=== PATIENT | male | born 1940 | race Caucasian/White ===

== ENCOUNTER 2018-01-23 09:25 | Inpatient (IN) ==
[2018-01-23] MEDS ORDERED: Ondansetron 4 MG/2 ML VIAL IVP ONE ×2 (09:53→11:05)
[2018-01-23] MEDS ORDERED: Isovue-370 500 ML INFUS..BTL IV ONE (09:56)
[2018-01-23] MEDS ORDERED: *HR* FentaNYL (PF) 100 MCG/2 ML VIAL IVP ONE ×2 (09:56→11:09)
[2018-01-23] MEDS ORDERED: 0.9 % Sodium Chloride 1,000 ML IVC ONE (09:58)
[2018-01-23 10:07] LABS: Basophils % 0.3 %; Eosinophils # 0.1 K/mcL (0.0-0.6); Eosinophils % 0.4 %; Hematocrit 49.2 % (37.5-50.1); Hemoglobin 16.4 g/dL (12.9-16.9); Immature Granulocytes % 0.3 % (0-4); Lymphocytes # 1.2 K/mcL (0.6-4.6); Lymphocytes % 10.7 %; Mean Corpuscular HGB Conc 33.3 g/dL (31.6-35.5); Mean Corpuscular Hemoglobin 29.4 pg (28.0-33.3); Mean Corpuscular Volume 88.3 fL (83.0-100.0); Mean Platelet Volume 11.3 fL (9.4-12.4); Monocytes # 0.6 K/mcL (0.0-1.3); Neutrophils # 9.7 K/mcL (1.6-8.9); Platelet Count 197 K/mcL (140-400); Red Blood Count 5.57 M/mcL (4.19-5.50); Red Cell Distribution Width 13.2 % (11.5-14.5); Segmented Neutrophils % 83.3 %
--- NOTE | 2018-01-23 10:08 | Emergency Department Note ---
Disposition Clinical Impression: Hematuria Qualifiers: Hematuria type: unspecified type Qualified Code(s): R31.9 - Hematuria, unspecified Disposition: Admitted As Inpatient Condition: Good Referrals: Monique Oseguera MD [Primary Care Provider] - Time of Disposition: 12:00 General Adult HPI - General Chief complaint: ED Nausea/Vomiting/Diarrhea Stated complaint: N/V Time Seen by Provider: 01/23/18 09:28 Source: patient, EMS Mode of arrival: EMS Limitations: no limitations Nursing Notes Reviewed: Yes Vital Signs Reviewed: Yes - History of Present Illness HPI Narrative: Patient is a 77-year-old male with past medical history of multiple abdominal surgeries including hernia repairs presenting today with 1 day of left lower abdominal pain that started abruptly this morning around 7 AM. He states that h e also woke up at 3 AM and felt a sudden sensation of sharp pain that started when he turned over in bed, states he was able to move in a different way pain go away back to sleep. Then when he woke at 7 AM this morning the pain returned and did not go away, describes it as a sharp pain without radiation and a 10 out of 10 in severity. Patient states that he has a history of "the sugars", takes a daily aspirin, and had a vasectomy several years ago which resulted in his left testicle being larger than his right, which she has previously had worked up and been told that it was nothing that needs to be fixed. Patient denies any allergies. Patient states that he had back surgery several years ago which resulted in complication leading to pain for which she was placed on chronic pain medication, but states that he was taken off his pain medication 4 months ago. Pain Scale: 10 - Related Data Home Medications Medication Instructions Recorded Confirmed Aspirin [Lo-Dose Aspirin EC] 81 mg PO DAILY 10/05/17 10/05/17 Glimepiride [Amaryl] 4 mg PO BID 10/05/17 10/05/17 Cyanocobalamin (Vitamin B-12) 1,000 mcg PO DAILY 01/23/18 01/23/18 [Vitamin B-12] Metformin HCl 500 mg PO BID 01/23/18 01/23/18 Pregabalin [Lyrica] 75 mg PO BID 01/23/18 01/23/18 Allergies Allergy/AdvReac Type Severity Reaction Status Date / Time No Known Allergies Allergy Verified 01/23/18 09:36 Constitutional: Reports: fever, chills Cardiovascular: Denies: chest pain Respiratory: Denies: cough, dyspnea, wheezes Gastrointestinal: Reports: abdominal pain, nausea, vomiting, diarrhea. Denies: constipation, hematemesis, hematochezia Genitourinary: Denies: urgency, dysuria Musculoskeletal: Reports: back pain Neurological: Denies: headache Past Medical History - Past Medical History Medical history: Reports: arthritis, coronary artery disease, diabetes, GERD Surgical history: Reports: angioplasty/stent, cholecystectomy, herniorrhaphy, other Psychiatric history: Reports: depression - Social History Smoking Status: Former smoker Smokeless Tobacco Status: No Alcohol use: Reports: none Drug use: Reports: none Physical Exam - General Limitations: no limitations General appearance: alert, in no apparent distress - Head Head exam: atraumatic, normocephalic - Eye Eye exam: Present: normal appearance, PERRL, EOMI - ENT ENT exam: normal exam, normal oropharynx, mucous membranes moist - Neck Neck exam: Present: normal inspection, full ROM - Chest Chest inspection: Present: normal inspection, symmetric chest wall rise - Respiratory Respiratory exam: Present: normal lung sounds bilaterally. Absent: respiratory distress, wheezes - Cardiovascular Cardiovascular exam: Present: regular rate, normal rhythm - Abdominal Exam Abdominal exam: Present: soft, tenderness (left, above the inguinal crease), hernia (central), scar (multiple abdominal scars present), other (palpable swelling above left inguinal crease, without discoloration, erythema, or warmth) - Neurological Exam Neurological exam: Present: alert, oriented X3 - Psychiatric Psychiatric exam: Present: agitated - Skin Skin exam: Present: warm, dry, intact Course Course Narrative: Will get labs to include CBC, CMP, Lipase, UA. Will get imaging - CT Abd/Pelvis with IV contrast. Will administer anti-emetics, pain medication, fluids. Concern for hernia given patient's hx of multiple hernias. - Reevaluation(s) Reevaluation #1: CT concerning for hemorrhage in collecting system. Consulted Dr. Oscar, Urology, who states they do not want the pt on their service but would be happy to consult. Pt agrees with plan to be admitted. Will admit to hospitalist. Time: 12:38 Vital Signs Temperature 98 F 01/23/18 09:29 Pulse Rate 50 01/23/18 09:29 Respiratory Rate 16 01/23/18 09:29 Blood Pressure 152/81 01/23/18 09:29 O2 Sat by Pulse Oximetry 100 01/23/18 09:29 Temperature 98 F 01/23/18 09:29 Pulse Rate 77 01/23/18 14:00 Respiratory Rate 16 01/23/18 14:03 Blood Pressure 140/77 01/23/18 14:03 O2 Sat by Pulse Oximetry 100 01/23/18 14:00 Oxygen Delivery Oxygen Delivery Room Air Medical Decision Making - MDM Narrative Medical decision making narrative: Pt's CT was concerning for renal hemorrhage with a clot in his bladder. Spoke with urology, Dr Oscar, that agreed to see the patient today. Spoke with hospitalist, Dr. Joshi, that agreed to admit the patient. Spoke with the patient and he agreed with and understood the plan. Pt was given an opportunity to ask questions and all of his concerns were addressed. Pt remained stable while in the department. Pt's pain and nausea were addressed. - Medical Records Medical records reviewed: Yes I reviewed the patient's medical records. - Lab Data Lab results reviewed: Yes I reviewed the patient's lab results. Result diagrams: 01/23/18 09:52 01/23/18 09:52 Lab Results 01/23/18 01/23/18 01/23/18 Range/Units 09:52 09:52 10:30 WBC 11.6 H (4.3-11.1) K/mcL RBC 5.57 H (4.19-5.50) M/mcL Hgb 16.4 (12.9-16.9) g/dL Hct 49.2 (37.5-50.1) % MCV 88.3 (83.0-100.0) fL MCH 29.4 (28.0-33.3) pg MCHC 33.3 (31.6-35.5) g/dL RDW 13.2 (11.5-14.5) % Plt Count 197 (140-400) K/mcL MPV 11.3 (9.4-12.4) fL Immature Gran % 0.3 (0-4) % Seg Neutrophils % 83.3 % Lymphocytes % 10.7 % Monocytes % 5.0 % Eosinophils % 0.4 % Basophils % 0.3 % Neutrophils # 9.7 H (1.6-8.9) K/mcL Lymphocytes # 1.2 (0.6-4.6) K/mcL Monocytes # 0.6 (0.0-1.3) K/mcL Eosinophils # 0.1 (0.0-0.6) K/mcL Basophils # 0.0 (0.0-0.2) K/mcL Sodium 137 (136-145) mEq/L Potassium 4.9 (3.5-5.1) mEq/L Chloride 103 (98-107) mEq/L Carbon Dioxide 23 (23-29) mEq/L BUN 20 (8-23) mg/dL Creatinine 0.98 (0.70-1.30) mg/dL Est GFR ( Amer) > 60 (> 60) Est GFR (Non-Af Amer) > 60 (> 60) BUN/Creatinine Ratio 20 (6-26) Glucose 269 H (70-105) mg/dL Calculated Osmolality 296 (280-300) Calcium 9.8 (8.6-10.3) mg/dL Total Bilirubin 1.9 H (0.3-1.0) mg/dL AST 20 (13-39) Units/L ALT 12 (7-52) Units/L Alkaline Phosphatase 57 (34-104) Units/L Serum Total Protein 7.1 (6.4-8.9) g/dL Albumin 4.2 (3.5-5.7) g/dL Globulin 2.9 (2.4-3.5) g/dL Albumin/Globulin Ratio 1.4 (1.1-2.2) Lipase 11 (11-82) Units/L Urine Color Red A (Yellow) Urine Clarity Turbid A (Clear) Urine pH 7.0 (5.0-8.0) pH Units Ur Specific [place] 1.019 (1.010-1.025) Urine Protein 30 H (Neg-Trace) mg/dL Urine Glucose (UA) 500 H (Normal) mg/dL Urine Ketones 80 H (Negative) mg/dL Urine Blood Large H (Negative) Urine Nitrite Negative (Negative) Urine Bilirubin Negative (Negative) Urine Urobilinogen Normal (Normal) mg/dL Ur Leukocyte Esterase Small H (Negative) Urine Microscopic RBC TNTC H (0-3) per hpf Urine Microscopic WBC 5-15 H (0-3) per hpf Ur Squamous Epith Cells Few (None-Few) per lpf Urine Bacteria None Seen (None-Few) per hpf Hyaline Casts None Seen (None-Few) per lpf Ur Culture Indicated? YES A (NO) - Radiology Data Radiology results reviewed: Yes I reviewed the patient's radiology results. Abdomen/Pelvis CT 01/23/18 09:56 IMPRESSION: Mild to moderate hydronephrosis, increased perinephric stranding and increased density material within the renal collecting system which may represent hemorrhage. Underlying soft tissue lesion cannot be excluded. Findings more prominent than on prior study. Please correlate with any history of urologic evaluation. There is a 2 mm calcification noted within the distal 3rd of the left ureter which may represent a ureteral stone. Increased density within the bladder also noted which may represent hemorrhagic clot although soft tissue lesion cannot be excluded. Other incidental findings as above. D/ / 01/23/2018 12:22:48 Jamari Marcano MD / mikael Interpreting Provider: Jamari Marcano MD
[2018-01-23 10:23] LABS: Alanine Aminotransferase 12 Units/L (7-52); Albumin 4.2 g/dL (3.5-5.7); Albumin/Globulin Ratio 1.4 (1.1-2.2); Alkaline Phosphatase 57 Units/L (34-104); Aspartate Amino Transferase 20 Units/L (13-39); BUN/Creatinine Ratio 20 (6-26); Bilirubin,Total 1.9 mg/dL (0.3-1.0); Blood Urea Nitrogen 20 mg/dL (8-23); Calcium 9.8 mg/dL (8.6-10.3); Carbon Dioxide 23 mEq/L (23-29); Chloride 103 mEq/L (98-107); Globulin 2.9 g/dL (2.4-3.5); Glucose 269 mg/dL (70-105); Lipase 11 Units/L (11-82); Osmolality,Calculated 296 (280-300); Potassium 4.9 mEq/L (3.5-5.1); Sodium 137 mEq/L (136-145); Total Protein 7.1 g/dL (6.4-8.9); eGFR For Non-African Americans > 60 (> 60)
--- NOTE | 2018-01-23 10:32 | Emergency Department Note ---
Disposition Clinical Impression: Hematuria Qualifiers: Hematuria type: unspecified type Qualified Code(s): R31.9 - Hematuria, unspecified Disposition: Admitted As Inpatient Condition: Good Time of Disposition: 15:43 General Adult HPI - General Chief complaint: ED Nausea/Vomiting/Diarrhea Stated complaint: N/V Time Seen by Provider: 01/23/18 09:28 Source: patient, EMS Mode of arrival: EMS Limitations: no limitations - History of Present Illness HPI Narrative: Attestation note: Patient was seen with the emergency medicine resident/nurse practitioner/physician switchboard operator assistant/transitional resident/medical student: Dr. ANTIONETTE ATKINS I have personally performed a face to face evaluation on this patient. I have reviewed and agree with history and physical examination patient management and disposition. Briefly the salient points of the case are as follows: 77 year old male history of multiple hernia surgeries by Dr. Salter at [facility] with mesh. Patient complains of diffuse abdominal pain tenderness in the epigastric hypogastric left inguinal and left upper quadrant. Patient is sent multiple episodes of bilious vomiting decreased appetite denies fevers chest pain or shortness of breath. Says is 10 out of 10 in moderate to severe distress. Patient got 50 g of IV fentanyl be followed by 100 g of IV fentanyl IV fluid anti-medics screening labs abdominal pelvic CT. Disposition pending. Pain Scale: 10 - Related Data Home Medications Medication Instructions Recorded Confirmed RX: Aspirin [Lo-Dose Aspirin EC] 81 mg PO DAILY 10/05/17 01/23/18 RX: Glimepiride [Amaryl] 4 mg PO BID 10/05/17 01/23/18 Cyanocobalamin (Vitamin B-12) 1,000 mcg PO DAILY 01/23/18 01/23/18 [Vitamin B-12] Metformin HCl 500 mg PO BID 01/23/18 01/23/18 Pregabalin [Lyrica] 75 mg PO BID 01/23/18 01/23/18 Allergies Allergy/AdvReac Type Severity Reaction Status Date / Time No Known Allergies Allergy Verified 01/23/18 09:36 Constitutional: Reports: fever, chills Cardiovascular: Denies: chest pain Respiratory: Denies: cough, dyspnea, wheezes Gastrointestinal: Reports: abdominal pain, nausea, vomiting, diarrhea. Denies: constipation, hematemesis, hematochezia Genitourinary: Denies: urgency, dysuria Musculoskeletal: Reports: back pain Neurological: Denies: headache Past Medical History - Past Medical History Medical history: Reports: arthritis, coronary artery disease, diabetes, GERD Surgical history: Reports: angioplasty/stent, cholecystectomy, herniorrhaphy, other Psychiatric history: Reports: depression - Social History Smoking Status: Former smoker Smokeless Tobacco Status: No Alcohol use: Reports: none Drug use: Reports: none Physical Exam - General Limitations: no limitations General appearance: alert, in no apparent distress Course Vital Signs Temperature 98 F 01/23/18 09:29 Pulse Rate 50 01/23/18 09:29 Respiratory Rate 16 01/23/18 09:29 Blood Pressure 152/81 01/23/18 09:29 O2 Sat by Pulse Oximetry 100 01/23/18 09:29 Temperature 98.3 F 01/24/18 14:20 Pulse Rate 60 01/24/18 14:20 Respiratory Rate 16 01/24/18 14:20 Blood Pressure 128/75 01/24/18 14:20 O2 Sat by Pulse Oximetry 96 01/24/18 14:20 Oxygen Delivery Oxygen Delivery Room Air Medical Decision Making - Lab Data Result diagrams: 01/24/18 04:22 01/24/18 04:22 Lab Results 01/23/18 01/23/18 01/23/18 Range/Units 09:52 09:52 10:30 WBC 11.6 H (4.3-11.1) K/mcL RBC 5.57 H (4.19-5.50) M/mcL Hgb 16.4 (12.9-16.9) g/dL Hct 49.2 (37.5-50.1) % MCV 88.3 (83.0-100.0) fL MCH 29.4 (28.0-33.3) pg MCHC 33.3 (31.6-35.5) g/dL RDW 13.2 (11.5-14.5) % Plt Count 197 (140-400) K/mcL MPV 11.3 (9.4-12.4) fL Immature Gran % 0.3 (0-4) % Seg Neutrophils % 83.3 % Lymphocytes % 10.7 % Monocytes % 5.0 % Eosinophils % 0.4 % Basophils % 0.3 % Neutrophils # 9.7 H (1.6-8.9) K/mcL Lymphocytes # 1.2 (0.6-4.6) K/mcL Monocytes # 0.6 (0.0-1.3) K/mcL Eosinophils # 0.1 (0.0-0.6) K/mcL Basophils # 0.0 (0.0-0.2) K/mcL Sodium 137 (136-145) mEq/L Potassium 4.9 (3.5-5.1) mEq/L Chloride 103 (98-107) mEq/L Carbon Dioxide 23 (23-29) mEq/L BUN 20 (8-23) mg/dL Creatinine 0.98 (0.70-1.30) mg/dL Est GFR ( Amer) > 60 (> 60) Est GFR (Non-Af Amer) > 60 (> 60) BUN/Creatinine Ratio 20 (6-26) Glucose 269 H (70-105) mg/dL Calculated Osmolality 296 (280-300) Calcium 9.8 (8.6-10.3) mg/dL Total Bilirubin 1.9 H (0.3-1.0) mg/dL AST 20 (13-39) Units/L ALT 12 (7-52) Units/L Alkaline Phosphatase 57 (34-104) Units/L Serum Total Protein 7.1 (6.4-8.9) g/dL Albumin 4.2 (3.5-5.7) g/dL Globulin 2.9 (2.4-3.5) g/dL Albumin/Globulin Ratio 1.4 (1.1-2.2) Lipase 11 (11-82) Units/L Urine Color Red A (Yellow) Urine Clarity Turbid A (Clear) Urine pH 7.0 (5.0-8.0) pH Units Ur Specific [place] 1.019 (1.010-1.025) Urine Protein 30 H (Neg-Trace) mg/dL Urine Glucose (UA) 500 H (Normal) mg/dL Urine Ketones 80 H (Negative) mg/dL Urine Blood Large H (Negative) Urine Nitrite Negative (Negative) Urine Bilirubin Negative (Negative) Urine Urobilinogen Normal (Normal) mg/dL Ur Leukocyte Esterase Small H (Negative) Urine Microscopic RBC TNTC H (0-3) per hpf Urine Microscopic WBC 5-15 H (0-3) per hpf Ur Squamous Epith Cells Few (None-Few) per lpf Urine Bacteria None Seen (None-Few) per hpf Hyaline Casts None Seen (None-Few) per lpf Ur Culture Indicated? YES A (NO)
[2018-01-23 10:43] LABS: Bilirubin,Urine Negative (Negative); Blood,Urine Large (Negative); Clarity,Urine Turbid (Clear); Color,Urine Red (Yellow); Glucose,Urine (UA) 500 mg/dL (Normal); Ketones,Urine 80 mg/dL (Negative); Leukocyte Esterase,Urine Small (Negative); Nitrite,Urine Negative (Negative); Protein,Urine 30 mg/dL (Neg-Trace); Specific Gravity,Urine 1.019 (1.010-1.025); Urobilinogen,Urine Normal (Normal)
[2018-01-23 10:46] LABS: Bacteria,Urine None Seen per hpf (None-Few); Hyaline Casts,Urine None Seen per lpf (None-Few); RBC,Urine TNTC per hpf (0-3); Squamous Epithelial Cell,Urine Few per lpf (None-Few)
[2018-01-23] MEDS ORDERED: *HR* HYDROmorphone (PF) 1 MG/ML SYRINGE IVP ONE (12:43)
[2018-01-23] MEDS ORDERED: cefTRIAXone 1,000 MG in Water for inj. (sterile) 20 ML 10 ML IVP ONE (13:09)
--- NOTE | 2018-01-23 13:41 | Urology - Consult Note ---
Date of Encounter: 01/23/18 Time of Encounter: 13:39 - Assessment and Plan (1) Gross hematuria Current Visit: Yes Status: Acute Assessment and plan: Unsure of etiology at this time. We will plan on taking the patient to the oper ative room today for left ureteroscopy. (2) Left flank pain Current Visit: Yes Status: Acute Assessment and plan: We will plan on placing left ureteral stent placement. (3) Hydronephrosis, left Current Visit: Yes Status: Acute Assessment and plan: Likely secondary to blood products causing clot colic. Urology CN:HPI Consult date: 01/23/18 Reason for consult Urology: Gross Hematuria Requesting physician: Keli Charles History of present illness: Anand is a 77-year-old male who presented to the emergency department today secondary to severe left inguinal discomfort. Patient states the pain radiated up his abdomen. Pain is currently a 10 out of 10 in nature and poorly improved with IV pain medicine. Patient had a CT scan performed which revealed blood products and his left renal collecting system as well as in his left ureter. Patient was some proximal hydronephrosis and left side as well. Patient did have a negative retrograde pyelogram and semirigid ureteroscopy this past summer by Dr. Samuel. Patient also with persistent nausea and vomiting. No fevers. Patient's blood glucose is also slightly elevated. Past Med Surg Social Fam HX - Past Medical History Medical history: arthritis, coronary artery disease, diabetes, GERD Additional medical history: cardiac stents x2,ballon, 5 hernia repairs, esphageal sx, erectile dysfunction, epicondylitis Psychiatric history: depression - Past Surgical History Surgical History: angioplasty/stent, cholecystectomy, herniorrhaphy, other Additional surgical history: back,estela,egd,colonoscopydeviated septum,plif, hernia repairs - Social History Smoking Status: Former smoker Smokeless Tobacco Status: No Alcohol use: none Drug use: none - Family History Father Adopted: Yes Brother Family Member Ethnicity: Non- Living Status: Still Living Hx Family Cardiac Disorders: Yes (CABG) Hx Family Respiratory Disorders: No Hx Family Cancer: No Hx Family GI Disorders: No Hx Family Endocrine Disorder: No Hx Family Neuromuscular Disorders: No Hx Family Neurologic Disorders: No Hx Family HEENT Disorders: No Hx Family Autoimmune Disorders: No Medications and Allergies Aspirin [Lo-Dose Aspirin EC] 81 mg PO DAILY 10/05/17 [History] Cyanocobalamin/Folic Acid [B-12 1,000 Mcg Sub Tablet] 1 tab SL DAILY 10/05/17 [History] Duloxetine HCl [Cymbalta] 60 mg PO DAILY 10/05/17 [History] Famotidine [Pepcid] 20 mg PO DAILY 10/05/17 [History] Glimepiride [Amaryl] 4 mg PO BID 10/05/17 [History] Metformin HCl 500 mg PO BID 10/05/17 [History] OxyCODONE/APAP 10/325 [Percocet 10/325 MG] 1 tab PO Q6H PRN 10/05/17 [History] Allergy/AdvReac Type Severity Reaction Status Date / Time No Known Allergies Allergy Verified 01/23/18 09:36 Review of Systems - Constitutional no chills, no fever(s) - EENT Nose, mouth and throat: no dizziness, no sore throat - Cardiovascular no chest pain, no edema - Respiratory no cough, no dyspnea - Gastrointestinal abdominal pain, nausea, vomiting - Genitourinary as per HPI, hematuria - Musculoskeletal back pain, no muscle weakness - Integumentary no erythema, no swelling - Neurological weakness (Weakness on right side secondary to prior stroke), no sensory deficit - Psychiatric no anxiety, no confusion - Hematologic/Lymphatic no lymphadenopathy - Allergic/Immunologic no throat swelling, no wheezing Exam Initial Vital Signs Temp Pulse Resp BP Pulse Ox 98 F 50 16 152/81 100 01/23/18 09:29 01/23/18 09:29 01/23/18 09:29 01/23/18 09:29 01/23/18 09:29 General/Neuological: alert and oriented x 3 Eyes: normal pupils, non-icteric Neck: no lymphadenopathy noted, supple to touch Cardiovascular: RRR, no murmurs Respiratory: normal respiratory effort, clear bilaterally ABD: soft, nontender, no masses palpated, good bowel sounds, no obvious left inguinal hernia but difficult exam secondary to patient discomfort. Back: no pain on percussion bilaterally : normal phallus, normal scrotum, testicles and epididymides normal, urethral meatus normal. Skin: no rashes noted Musculoskeletal: normal gait, FROM Urology Results - Labs 01/23/18 09:52 01/23/18 09:52 Abnormal lab results WBC 11.6 K/mcL (4.3-11.1) H 01/23/18 09:52 RBC 5.57 M/mcL (4.19-5.50) H 01/23/18 09:52 Neutrophils # 9.7 K/mcL (1.6-8.9) H 01/23/18 09:52 Glucose 269 mg/dL (70-105) H 01/23/18 09:52 Total Bilirubin 1.9 mg/dL (0.3-1.0) H 01/23/18 09:52 Urine Color Red (Yellow) A 01/23/18 10:30 Urine Clarity Turbid (Clear) A 01/23/18 10:30 Urine Protein 30 mg/dL (Neg-Trace) H 01/23/18 10:30 Urine Glucose (UA) 500 mg/dL (Normal) H 01/23/18 10:30 Urine Ketones 80 mg/dL (Negative) H 01/23/18 10:30 Urine Blood Large (Negative) H 01/23/18 10:30 Ur Leukocyte Esterase Small (Negative) H 01/23/18 10:30 Urine Microscopic RBC TNTC per hpf (0-3) H 01/23/18 10:30 Urine Microscopic WBC 5-15 per hpf (0-3) H 01/23/18 10:30 Ur Culture Indicated? YES (NO) A 01/23/18 10:30 Diabetes panel 01/23/18 Range/Units 09:52 Sodium 137 (136-145) mEq/L Potassium 4.9 (3.5-5.1) mEq/L Chloride 103 (98-107) mEq/L Carbon Dioxide 23 (23-29) mEq/L BUN 20 (8-23) mg/dL Creatinine 0.98 (0.70-1.30) mg/dL Glucose 269 H (70-105) mg/dL Calcium 9.8 (8.6-10.3) mg/dL AST 20 (13-39) Units/L ALT 12 (7-52) Units/L Alkaline Phosphatase 57 (34-104) Units/L Albumin 4.2 (3.5-5.7) g/dL Calcium panel 01/23/18 Range/Units 09:52 Calcium 9.8 (8.6-10.3) mg/dL Albumin 4.2 (3.5-5.7) g/dL Pituitary panel 01/23/18 Range/Units 09:52 Sodium 137 (136-145) mEq/L Potassium 4.9 (3.5-5.1) mEq/L Chloride 103 (98-107) mEq/L Carbon Dioxide 23 (23-29) mEq/L BUN 20 (8-23) mg/dL Creatinine 0.98 (0.70-1.30) mg/dL Glucose 269 H (70-105) mg/dL Calcium 9.8 (8.6-10.3) mg/dL Adrenal panel 01/23/18 Range/Units 09:52 Sodium 137 (136-145) mEq/L Potassium 4.9 (3.5-5.1) mEq/L Chloride 103 (98-107) mEq/L Carbon Dioxide 23 (23-29) mEq/L BUN 20 (8-23) mg/dL Creatinine 0.98 (0.70-1.30) mg/dL Glucose 269 H (70-105) mg/dL Calcium 9.8 (8.6-10.3) mg/dL Total Bilirubin 1.9 H (0.3-1.0) mg/dL AST 20 (13-39) Units/L ALT 12 (7-52) Units/L Alkaline Phosphatase 57 (34-104) Units/L Albumin 4.2 (3.5-5.7) g/dL All other labs normal. - Imaging CT scan - abdomen: image reviewed CT scan - pelvis: image reviewed Consult Discharge Plan - Plan Referrals: Monique Oseguera MD [Primary Care Provider] -
[2018-01-23] MEDS ORDERED: Naloxone 0.4 MG/ML INJ IVP PRN ×2 (14:16→17:14)
[2018-01-23] MEDS ORDERED: Dextrose Gel 15 GM/37.5 ML TUBE PO PRN ×4 (14:20→17:14)
[2018-01-23] MEDS ORDERED: *HR* Dextrose 50 % in Water (Syg) 50 ML SYRINGE IVP PRN ×2 (14:20→17:14)
[2018-01-23] MEDS ORDERED: D5% in Water 1,000 ML IVC PRN ×2 (14:20→17:14)
[2018-01-23] MEDS ORDERED: Ondansetron 4 MG/2 ML VIAL IVP PRN ×2 (14:21→17:14)
--- NOTE | 2018-01-23 14:27 | Internal Med History&Physical ---
Date of Encounter: 01/23/18 Time of Encounter: 14:22 Internal Medicine - H&P: HPI Chief complaint: N/V/D Abdominal pain Admitted From: Home Plans for Post Hospital Care: Home History of present illness: Mr. Mendez is a 77 year old male with a PMH of arthritis, coronary artery disease, diabetes, GERD. All information obtained from patient report and chart review. He presents to [facility] with sharp 10/10, cramping, constant left lower quadrand/left groin abdominal pain, as well as nausea, vomiting and diarrhea. He reports that the pain began this morning around 7 a.m. after rolling over in bed. It is radiating into his left mid back. He is also experiencing fevers, chills, dysuria and hematuria. In October of 2017 he underwent fluroscopy guided stent placment into the left renal collecting system. There were noted to be filling defects in the mid left ureter and the possibility of a mucosal mass/ neoplasm could not be excluded at that time. Today in the ED he was noted to have leukocytosis, UA positive for hematuria and the CT abd/pel reveals mild to moderate hydronephrosis, increased perinephric stranding and increased density material within the renal collecting system which may represent a hemorrhage. Case d/w Dr. Ar[facility] who plans to take the patient for ureterocsopy with possible let ureteral stent placement. He will be admitted to observation and will require ABX, and pain management as well as monitoring of renal function. Past Med Surg Social Fam HX - Past Medical History Medical history: arthritis, coronary artery disease, diabetes, GERD Additional medical history: cardiac stents x2,ballon, 5 hernia repairs, esphageal sx, erectile dysfunction, epicondylitis Psychiatric history: depression - Past Surgical History Surgical History: angioplasty/stent, cholecystectomy, herniorrhaphy, other Additional surgical history: back,estela,egd,colonoscopydeviated septum,plif, hernia repairs - Social History Smoking Status: Former smoker Smokeless Tobacco Status: No Alcohol use: none Drug use: none - Family History Father Adopted: Yes Brother Family Member Ethnicity: Non- Living Status: Still Living Hx Family Cardiac Disorders: Yes (CABG) Hx Family Respiratory Disorders: No Hx Family Cancer: No Hx Family GI Disorders: No Hx Family Endocrine Disorder: No Hx Family Neuromuscular Disorders: No Hx Family Neurologic Disorders: No Hx Family HEENT Disorders: No Hx Family Autoimmune Disorders: No Internal Medicine - H&P: Meds Aspirin [Lo-Dose Aspirin EC] 81 mg PO DAILY 10/05/17 [History] Glimepiride [Amaryl] 4 mg PO BID 10/05/17 [History] Cyanocobalamin (Vitamin B-12) [Vitamin B-12] 1,000 mcg PO DAILY 01/23/18 [History] Metformin HCl 500 mg PO BID 01/23/18 [History] Pregabalin [Lyrica] 75 mg PO BID 01/23/18 [History] Allergy/AdvReac Type Severity Reaction Status Date / Time No Known Allergies Allergy Verified 01/23/18 09:36 All Systems PM: A 10-system review of systems was performed and is negative for pertinent findings except as documented above in the HPI. - Constitutional Constitutional: chills, fever(s), malaise, night sweats - Cardiovascular Cardiovascular ROS IM: no chest pain, no diaphoresis, no dyspnea, no lightheadedness, no palpitations, no syncope - Respiratory Respiratory: no cough, no dyspnea, no wheezing, no excessive phlegm production - Gastrointestinal Gastrointestinal: abdominal pain (LLQ), nausea, vomiting - Genitourinary Genitourinary ROS male: hematuria - Musculoskeletal Musculoskeletal ROS IM: no numbness, no tingling - Integumentary Integumentary IM: no rash, no unusual bruising - Neurological Neurological ROS: no confusion, no convulsions, no focal weakness, no numbness, no tingling, no tremor(s) - Constitutional Vitals: Temp Pulse Resp BP Pulse Ox 98 F 77 16 140/77 100 01/23/18 09:29 01/23/18 14:00 01/23/18 14:03 01/23/18 14:03 01/23/18 14:00 General appearance: Present: A&O X 3 Exam: see exam - Head Head exam: Present: atraumatic, normocephalic - Eye Eye exam: Present: EOMI, PERRL, conjuntiva pink, sclera anicteric Pupils: Present: PERRL - Neck Neck exam general surgery: Present: normal inspection, supple, trachea midline. Absent: lymphadenopathy - Respiratory Respiratory exam: Present: CTAB. Absent: accessory muscle use, rales, rhonchi, wheezes - Cardiovascular Cardiovascular exam: Present: RRR, +S1, +S2. Absent: bradycardia, diastolic murmur, gallop, rubs, systolic murmur, tachycardia - GI/Abdominal GI/Abdominal exam: Present: normal bowel sounds, soft, tenderness (LLE), no peritoneal signs. Absent: distended - Extremities Exam Extremities exam: Present: normal capillary refill, normal inspection, warm, radial pulses palpable and symmetrical. Absent: calf tenderness, cyanotic, pedal edema, tenderness - Neurological Exam Neurological exam: Present: alert, CN II-XII intact, oriented X3, no focal deficits. Absent: pronater drift, facial droop, speech deficit - Skin Skin exam: Present: dry, intact Internal Med - H&P Results - Labs CBC & Chem 7: 01/23/18 09:52 01/23/18 09:52 Labs: Short CBC 01/23/18 Range/Units 09:52 WBC 11.6 H (4.3-11.1) K/mcL Hgb 16.4 (12.9-16.9) g/dL Hct 49.2 (37.5-50.1) % Plt Count 197 (140-400) K/mcL Neutrophils # 9.7 H (1.6-8.9) K/mcL BMP 01/23/18 09:52 Sodium 137 Potassium 4.9 Chloride 103 Carbon Dioxide 23 BUN 20 Creatinine 0.98 Glucose 269 H Calcium 9.8 Liver Function 01/23/18 Range/Units 09:52 Total Bilirubin 1.9 H (0.3-1.0) mg/dL AST 20 (13-39) Units/L ALT 12 (7-52) Units/L Alkaline Phosphatase 57 (34-104) Units/L Albumin 4.2 (3.5-5.7) g/dL Urine 01/23/18 Range/Units 10:30 Urine Color Red A (Yellow) Urine Clarity Turbid A (Clear) Urine pH 7.0 (5.0-8.0) pH Units Ur Specific [place] 1.019 (1.010-1.025) Urine Protein 30 H (Neg-Trace) mg/dL Urine Glucose (UA) 500 H (Normal) mg/dL - Impressions ITS Impressions Abdomen/Pelvis CT 01/23/18 09:56 IMPRESSION: Mild to moderate hydronephrosis, increased perinephric stranding and increased density material within the renal collecting system which may represent hemorrhage. Underlying soft tissue lesion cannot be excluded. Findings more prominent than on prior study. Please correlate with any history of urologic evaluation. There is a 2 mm calcification noted within the distal 3rd of the left ureter which may represent a ureteral stone. Increased density within the bladder also noted which may represent hemorrhagic clot although soft tissue lesion cannot be excluded. Other incidental findings as above. D/ / 01/23/2018 12:22:48 Jamari Marcano MD / mikael Interpreting Provider: Jamari Marcano MD - Assessment and plan (1) Gross hematuria Current Visit: Yes Status: Acute Assessment and plan: Etiology unclear to undergo uteroscopy for evaluation and left stent placement Continue pain management with immediate release oxycodone continue antiemetics continue IVF (2) Hydronephrosis, left Current Visit: Yes Status: Acute Assessment and plan: as above (3) Left flank pain Current Visit: Yes Status: Acute Assessment and plan: as above (4) Diabetes Current Visit: No Status: Acute Assessment and plan: Q6H accucheck q6h LSSIC Qualifiers: Diabetes mellitus type: type 2 Diabetes mellitus complication status: without complication Qualified Code(s): E11.9 - Type 2 diabetes mellitus without complications (5) DVT prophylaxis Current Visit: Yes Status: Acute Assessment and plan: EPCD's - Time Spent With Patient Total time spent is greater than 50% in coordination of care (as documented) at patient's floor/unit and/or counseling patient: less than 15 minutes
[2018-01-23] MEDS ORDERED: Ringers Solution, Lactated 1,000 ML ONE (14:28)
[2018-01-23] MEDS ORDERED: 0.9 % Sodium Chloride 1,000 ML IVC SCH (14:30)
[2018-01-23] MEDS ORDERED: *HR* OxyCODONE Immed Rel 5 MG TABLET PO PRN (14:39)
--- NOTE | 2018-01-23 14:58 | Anesthesia Evaluation PreOp ---
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), Other (Anxiety/depression, diabetic neuropathy) Other Medical History: Renal (gross hematuria this hospitalization), Diabetes Type II Anesthesia History: No Prior Anesthetic Complications, Past Anesthesia (Ureteroscopy/Bx, Hernia repair x 5, Esophageal sx, Back surgery, estela, repair deviated septum, PLIF,), Problems (Hx agitation/dysphoria in PACU, states has gone "wackadoodle") Alcohol Use: none Drug use: none Medications and Allergies Aspirin [Lo-Dose Aspirin EC] 81 mg PO DAILY 10/05/17 [History] Glimepiride [Amaryl] 4 mg PO BID 10/05/17 [History] Cyanocobalamin (Vitamin B-12) [Vitamin B-12] 1,000 mcg PO DAILY 01/23/18 [Histo ry] Metformin HCl 500 mg PO BID 01/23/18 [History] Pregabalin [Lyrica] 75 mg PO BID 01/23/18 [History] Allergy/AdvReac Type Severity Reaction Status Date / Time No Known Allergies Allergy Verified 01/23/18 09:36 - Meds/Allergy Pre-op Review Medications Reviewed: Yes Allergies Reviewed: Yes Beta Blockers on Current Med List: No Anesthesia Results - Labs 01/23/18 09:52 01/23/18 09:52 Laboratory Results Impressions Abdomen/Pelvis CT 01/23/18 09:56 IMPRESSION: Mild to moderate hydronephrosis, increased perinephric stranding and increased density material within the renal collecting system which may represent hemorrhage. Underlying soft tissue lesion cannot be excluded. Findings more prominent than on prior study. Please correlate with any history of urologic evaluation. There is a 2 mm calcification noted within the distal 3rd of the left ureter which may represent a ureteral stone. Increased density within the bladder also noted which may represent hemorrhagic clot although soft tissue lesion cannot be excluded. Other incidental findings as above. D/ / 01/23/2018 12:22:48 Jamari Marcano MD / mikael Interpreting Provider: Jamari Marcano MD - Imaging EKG: image reviewed (60bpm - SINUS RHYTHM RIGHT BUNDLE BRANCH BLOCK Electronically Signed On 09-18-2017 10:39:06 EDT by Yong Pike) Additional studies: ECHO 07/13/2015 Impressions: No evidence of PFO by color Doppler. LVEF 60-65%. No pulmonary hypertension. No significant valvular dysfunction. Left Ventricular Wall Motion: Rest Echo Findings All wall segments showed normal motion. Anesthesia Exam Vital Signs Temp Pulse Resp BP Pulse Ox 01/23/18 14:03 16 140/77 01/23/18 14:00 77 16 140/77 100 01/23/18 13:30 78 16 177/97 99 01/23/18 12:30 83 16 162/86 98 01/23/18 11:40 61 16 171/105 96 01/23/18 10:33 59 16 164/94 100 01/23/18 09:29 98 F 50 16 152/81 100 Patient Weight 01/23/18 23:59 Weight 72.575 kg - HEENT Pupil (Motor): Pupils equal, EOMI Mallampati: II Teeth: Normal Oral Opening: Greater than 3 - ASSISTANT PROFESSOR OF FORESTRY LOC: Oriented ASSISTANT PROFESSOR OF FORESTRY Motor: Normal RUE, Normal LUE, Normal RLE, Normal LLE, Normal Face ASSISTANT PROFESSOR OF FORESTRY Sensory: Normal: RUE, LUE, RLE, LLE, Face - Cardiac Rhythm: Regular Murmur: None - Pulmonary Breath Sounds: bilateral Clear Respiratory Effort: Symmetrical Anesthesia Assess/Plan ASA Score: 3 Modified Leon Scale for Level of Consciousness: Cooperative, oriented, and tranquil Anesthetic Plan: General Monitoring Plan: Standard Monitors Recovery Plan: PACU Anes Supervising Prov Stmt: Pt seen/evaluated, R&B Discussed, questions answered and consent obtained. Latricia De La O MD
[2018-01-23] MEDS ORDERED: Metoclopramide 10 MG/2 ML VIAL ONE (15:20)
[2018-01-23] MEDS ORDERED: Famotidine 20 MG/2 ML VIAL ONE (15:20)
[2018-01-23] MEDS ORDERED: Acetaminophen IV 1,000 MG/100 ML INFUS..BTL ONE (15:20)
[2018-01-23] MEDS ORDERED: *HR* FentaNYL (PF) 100 MCG/2 ML VIAL ONE (15:24)
[2018-01-23] MEDS ORDERED: *HR* Propofol 200 MG/20 ML VIAL IVP ONE (15:24)
[2018-01-23] MEDS ORDERED: Lidocaine -MPF 2% 2 ML VIAL ONE (15:24)
[2018-01-23] MEDS ORDERED: Lidocaine -MPF 4% 5 ML AMPUL ONE (15:28)
[2018-01-23] MEDS ORDERED: Ondansetron 4 MG/2 ML VIAL ONE (15:51)
[2018-01-23] MEDS ORDERED: Dexamethasone 4 MG/ML VIAL ONE (15:51)
--- NOTE | 2018-01-23 16:15 | Operative Note ---
Date of procedure: 01/23/18 Pre-op diagnosis: left hydronephrosis with blood products in collecting system with left ston Post-op diagnosis: same Procedure: Left ureteroscopic removal of blood products within left renal collecting system and left ureter, left ureteroscopic basket removal of mid ureteral stone, left 6 x 28 cm ureteral stent placement Anesthesia: NORIS Surgeon: Kenton Argueta Was there an automobile mechanic assistant present: No Estimated blood loss (cc): 30 Specimen: left ureteral stone Condition: stable Disposition: PACU Procedure in Detail: Patient was prepped and draped in normal sterile fashion. Timeout procedure performed. I then inserted the cystoscope into the patient's bladder. There is a small amount of blood which was removed and the patient's bladder. I then cannulated the left ureteral orifice using a sensor wire. I then placed an 11 x 13 x 46 cm access sheath into the left kidney. I then placed a flexible ureteroscope into the patient's left renal collecting system. A large amount of blood products was seen within this area. I then used a basket device to remove the majority of the blood products from the left renal collecting system. I visualized each calyx with no obvious tumors seen. I then slowly withdrew the access sheath and encountered more blood products within the mid ureter. Upon removing these I encountered that there was a small stone which I removed in its entirety. Once I was satisfied with removal of the stone and the blood products I then placed a sensor wire back into the left kidney and placed a 6 x 28 cm stent with good curl seen in the left kidney and in the bladder. Bladder was drained and procedure was ended. Patient was taken to PACU in stable condition.
--- NOTE | 2018-01-23 17:15 | Anesthesia Evaluation Post Op ---
Date of Encounter: 01/23/18 Time of Encounter: 17:00 - Vital Signs Vital Signs: Vital Signs/O2 Sat/Glucose, Most Current Temp Pulse Resp BP Pulse Ox 01/23/18 16:50 99.4 F 64 18 158/91 94 01/23/18 16:40 70 18 160/93 94 01/23/18 16:30 80 18 132/81 96 01/23/18 16:20 99.4 F 73 16 153/90 95 01/23/18 14:03 16 140/77 01/23/18 14:00 77 16 140/77 100 01/23/18 13:30 78 16 177/97 99 - Lungs Lungs: Clear Ascult./Percussion - Airway Airway: Non-obstructed - Cardiovascular Regular Rate - Mental Status Mental Status: Alert & Oriented, Answers Appropriately - Pain Pain Scale: 0 Pain Scale used: Numeric (1 - 10) - Nausea Vomiting Nausea Vomiting: Not Present - Hydration Hydration: Tolerates oral liquids, Able to void - Discharge PostOp Status: Transfer Patient to floor Anes Supervising Prov Stmt: PT seen/evaluated, VSS and has met criteria for discharge to floor. - Jairon OCHOA
[2018-01-23] MEDS ORDERED: Insulin LISPRO 300 UNITS/3 ML VIAL SQ SCH (18:00)
[2018-01-23] MEDS: Insulin LISPRO 300 UNITS/3 ML VIAL SQ SCH (18:14)
[2018-01-23] MEDS: 0.9 % Sodium Chloride 1,000 ML IVC SCH (18:15)
[2018-01-23] MEDS: Pregabalin 75 MG CAPSULE PO SCH (19:54)
[2018-01-23] MEDS ORDERED: Pregabalin 75 MG CAPSULE PO SCH (21:00)
[2018-01-23] MEDS: *HR* OxyCODONE Immed Rel 5 MG TABLET PO PRN (22:51)
[2018-01-24] MEDS: Insulin LISPRO 300 UNITS/3 ML VIAL SQ SCH ×4 (00:45→17:31)
[2018-01-24 05:03] LABS: Hematocrit 41.5 % (37.5-50.1); Mean Corpuscular HGB Conc 33.7 g/dL (31.6-35.5); Mean Corpuscular Volume 89.1 fL (83.0-100.0); Mean Platelet Volume 11.4 fL (9.4-12.4); Platelet Count 210 K/mcL (140-400); Red Blood Count 4.66 M/mcL (4.19-5.50); Red Cell Distribution Width 13.5 % (11.5-14.5)
[2018-01-24 05:10] LABS: BUN/Creatinine Ratio 17 (6-26); Blood Urea Nitrogen 21 mg/dL (8-23); Carbon Dioxide 27 mEq/L (23-29); Chloride 104 mEq/L (98-107); Glucose 213 mg/dL (70-105); Osmolality,Calculated 293 (280-300); Potassium 3.8 mEq/L (3.5-5.1); Sodium 137 mEq/L (136-145); eGFR For Non-African Americans 58 (> 60)
[2018-01-24] MEDS: 0.9 % Sodium Chloride 1,000 ML IVC SCH (07:53)
[2018-01-24] MEDS: cefTRIAXone 1,000 MG in Water for inj. (sterile) 20 ML 10 ML IVP SCH (07:54)
[2018-01-24] MEDS: Pregabalin 75 MG CAPSULE PO SCH ×2 (07:54→21:13)
[2018-01-24] MEDS: Aspirin Enteric Coated 81 MG Tablet PO SCH (07:54)
--- NOTE | 2018-01-24 08:54 | Internal Med Progress Note ---
Hospitalist Progress Note - Encounter Date of Encounter: 01/24/18 Time of Encounter: 08:54 - Subjective Interval History: No acute changes overnight - Exam Vitals: Temp Pulse Resp BP Pulse Ox 98.8 F 66 15 112/54 92 01/24/18 04:59 01/24/18 04:59 01/24/18 04:59 01/24/18 04:59 01/24/18 04:59 Exam: PHYSICAL EXAMINATION: GENERAL: The patient is a well-developed, well-nourished, elderly male in no apparent distress. He is alert and oriented x3. HEENT: Head is normocephalic and atraumatic. Extraocular muscles are intact. Pupils are equal, round, and reactive to light and accommodation. NECK: Supple. No carotid bruits. No lymphadenopathy or thyromegaly. LUNGS: Clear to auscultation AP&L. HEART: Regular rate and rhythm, S1, S2, without murmur. ABDOMEN: Soft, and nondistended. Positive bowel sounds. No hepatosplenomegaly was noted. Mild LLQ tenderness to palpation without rebound EXTREMITIES: Without any cyanosis, clubbing, rash, lesions or edema. NEUROLOGIC: Cranial nerves II through XII are grossly intact. SKIN: No ulceration or induration present. - Assessment and Plan (1) Gross hematuria Current Visit: Yes Status: Acute Assessment and Plan: 01/24-- POD #1 Lt ureteral stent placement 2/2 gross hematuria, and moderate hydronephrosis 2/2 blood products in renal collecting system. Clinically, he remains stable and reports that he is urinating frequently without difficulty; however UOP charting does not indicate he is urinating frequently. Discuss with nursing staff to monitor UOP. C/o dysuria s/p ureteral stent placement; I informed him that this was expected. Renal function stable. Continue IVF, pain meds, antiemetics. D/C when okay with Urology. (2) Hydronephrosis, left Current Visit: Yes Status: Acute Assessment and Plan: as above (3) Left flank pain Current Visit: Yes Status: Acute Assessment and Plan: as above (4) Diabetes Current Visit: No Status: Acute Assessment and Plan: Q6H accucheck q6h LSSIC (5) DVT prophylaxis Current Visit: Yes Status: Acute Assessment and Plan: EPCD's - Time Spent with Patient Total time spent is greater than 50% in coordination of care (as documented) at patient's floor/unit and/or counseling patient: less than 15 minutes Plan of Care Discussed with: patient Internal Medicine: Result - Labs CBC & Chem 7: 01/24/18 04:22 01/24/18 04:22 Labs: Short CBC 01/23/18 01/24/18 Range/Units 09:52 04:22 WBC 11.6 H 13.9 H (4.3-11.1) K/mcL Hgb 16.4 14.0 D (12.9-16.9) g/dL Hct 49.2 41.5 (37.5-50.1) % Plt Count 197 210 (140-400) K/mcL Neutrophils # 9.7 H (1.6-8.9) K/mcL BMP 01/23/18 01/24/18 09:52 04:22 Sodium 137 137 Potassium 4.9 3.8 Chloride 103 104 Carbon Dioxide 23 27 BUN 20 21 Creatinine 0.98 1.21 Glucose 269 H 213 H Calcium 9.8 9.0 Liver Function 01/23/18 Range/Units 09:52 Total Bilirubin 1.9 H (0.3-1.0) mg/dL AST 20 (13-39) Units/L ALT 12 (7-52) Units/L Alkaline Phosphatase 57 (34-104) Units/L Albumin 4.2 (3.5-5.7) g/dL Urine 01/23/18 Range/Units 10:30 Urine Color Red A (Yellow) Urine Clarity Turbid A (Clear) Urine pH 7.0 (5.0-8.0) pH Units Ur Specific [place] 1.019 (1.010-1.025) Urine Protein 30 H (Neg-Trace) mg/dL Urine Glucose (UA) 500 H (Normal) mg/dL - Impressions Impressions Fluoroscopy 01/23/18 00:00 IMPRESSION: Fluoroscopic imaging obtained for the purpose of left ureteral stent placement. Please see performing physician notes for details. D/ / 01/23/2018 16:45:41 Jamari Marcano MD / altaf Interpreting Provider: Jamari Marcano MD X-Ray 01/23/18 00:00 IMPRESSION: Fluoroscopic imaging obtained for the purpose of left ureteral stent placement. Please see performing physician notes for details. D/ / 01/23/2018 16:45:41 Jamari Marcano MD / altaf Interpreting Provider: Jamari Marcano MD Abdomen/Pelvis CT 01/23/18 09:56 IMPRESSION: Mild to moderate hydronephrosis, increased perinephric stranding and increased density material within the renal collecting system which may represent hemorrhage. Underlying soft tissue lesion cannot be excluded. Findings more prominent than on prior study. Please correlate with any history of urologic evaluation. There is a 2 mm calcification noted within the distal 3rd of the left ureter which may represent a ureteral stone. Increased density within the bladder also noted which may represent hemorrhagic clot although soft tissue lesion cannot be excluded. Other incidental findings as above. D/ / 01/23/2018 12:22:48 Jamari Marcano MD / pastor mccray Interpreting Provider: Jamari Marcano MD Consult Discharge Plan - Plan Referrals: Monique Oseguera MD [Primary Care Provider] - (4) Diabetes Qualifiers: Diabetes mellitus type: type 2 Diabetes mellitus complication status: without complication Qualified Code(s): E11.9 - Type 2 diabetes mellitus without complications
[2018-01-24] MEDS ORDERED: Aspirin Enteric Coated 81 MG Tablet PO SCH (09:00)
[2018-01-24] MEDS ORDERED: cefTRIAXone 1,000 MG in Water for inj. (sterile) 20 ML 10 ML IVP SCH (09:00)
--- NOTE | 2018-01-24 14:00 | Urology Progress Note ---
Date of Encounter: 01/24/18 Time of Encounter: 13:59 - Assessment and Plan (1) Gross hematuria Current Visit: Yes Status: Acute Assessment and plan: resolving. (2) Left flank pain Current Visit: Yes Status: Acute (3) Hydronephrosis, left Current Visit: Yes Status: Acute Assessment and plan: sp stone removal and stent placement. will continue to follow. likely ok to dc home tomorrow. Progress Note Narrative: Patient seen. feeling better. still with some blood when he voids. no dysuria. + frequency. Objective Initial Vital Signs Temp Pulse Resp BP Pulse Ox 98 F 50 16 152/81 100 01/23/18 09:29 01/23/18 09:29 01/23/18 09:29 01/23/18 09:29 01/23/18 09:29 - General physical appearance Present: well developed, well nourished - Abdomen Present: soft - Integumentary Present: no rash, no abnormal pigmentation - Labs 01/24/18 04:22 01/24/18 04:22 Diabetes panel 01/24/18 Range/Units 04:22 Sodium 137 (136-145) mEq/L Potassium 3.8 (3.5-5.1) mEq/L Chloride 104 (98-107) mEq/L Carbon Dioxide 27 (23-29) mEq/L BUN 21 (8-23) mg/dL Creatinine 1.21 (0.70-1.30) mg/dL Glucose 213 H (70-105) mg/dL Calcium 9.0 (8.6-10.3) mg/dL Calcium panel 01/24/18 Range/Units 04:22 Calcium 9.0 (8.6-10.3) mg/dL Pituitary panel 01/24/18 Range/Units 04:22 Sodium 137 (136-145) mEq/L Potassium 3.8 (3.5-5.1) mEq/L Chloride 104 (98-107) mEq/L Carbon Dioxide 27 (23-29) mEq/L BUN 21 (8-23) mg/dL Creatinine 1.21 (0.70-1.30) mg/dL Glucose 213 H (70-105) mg/dL Calcium 9.0 (8.6-10.3) mg/dL Adrenal panel 01/24/18 Range/Units 04:22 Sodium 137 (136-145) mEq/L Potassium 3.8 (3.5-5.1) mEq/L Chloride 104 (98-107) mEq/L Carbon Dioxide 27 (23-29) mEq/L BUN 21 (8-23) mg/dL Creatinine 1.21 (0.70-1.30) mg/dL Glucose 213 H (70-105) mg/dL Calcium 9.0 (8.6-10.3) mg/dL Consult Discharge Plan - Plan Referrals: Monique Oseguera MD [Primary Care Provider] -
[2018-01-24] MEDS: *HR* OxyCODONE Immed Rel 5 MG TABLET PO PRN ×2 (14:30→21:21)
[2018-01-24] MEDS ORDERED: Naloxone 0.4 MG/ML INJ IVP PRN (16:48)
[2018-01-24] MEDS ORDERED: Insulin LISPRO 300 UNITS/3 ML VIAL SQ SCH (21:00)
[2018-01-25 03:42] VITALS: BP 162/85
[2018-01-25 06:20] LABS: Hematocrit 42.4 % (37.5-50.1); Hemoglobin 13.9 g/dL (12.9-16.9); Mean Corpuscular HGB Conc 32.8 g/dL (31.6-35.5); Mean Corpuscular Hemoglobin 29.8 pg (28.0-33.3); Mean Corpuscular Volume 90.8 fL (83.0-100.0); Mean Platelet Volume 11.1 fL (9.4-12.4); Platelet Count 180 K/mcL (140-400); Red Blood Count 4.67 M/mcL (4.19-5.50); Red Cell Distribution Width 13.8 % (11.5-14.5)
[2018-01-25 06:57] LABS: BUN/Creatinine Ratio 19 (6-26); Blood Urea Nitrogen 18 mg/dL (8-23); Calcium 9.1 mg/dL (8.6-10.3); Carbon Dioxide 26 mEq/L (23-29); Chloride 108 mEq/L (98-107); Glucose 149 mg/dL (70-105); Osmolality,Calculated 299 (280-300); Potassium 4.1 mEq/L (3.5-5.1); Sodium 142 mEq/L (136-145); eGFR For Non-African Americans > 60 (> 60)
--- NOTE | 2018-01-25 07:23 | Urology Progress Note ---
Date of Encounter: 01/25/18 Time of Encounter: 07:22 - Assessment and Plan (1) Gross hematuria Current Visit: Yes Status: Acute Assessment and plan: Appears resolving but can expect some blood in his urine until the stent is janeth rosey. (2) Left flank pain Current Visit: Yes Status: Acute (3) Hydronephrosis, left Current Visit: Yes Status: Acute Assessment and plan: Plan on keeping stent in place. Patient scheduled on February 21 at 7:30 in the morning for cystoscopy and stent removal. Call with any questions. Progress Note Narrative: Patient seen this morning. Patient feeling much better. No pain. Still having some blood in his urine which is expected. Objective Initial Vital Signs Temp Pulse Resp BP Pulse Ox 98 F 50 16 152/81 100 01/23/18 09:29 01/23/18 09:29 01/23/18 09:29 01/23/18 09:29 01/23/18 09:29 - General physical appearance Present: well developed, well nourished - Abdomen Present: soft. Absent: tender - Integumentary Present: no rash, no growths - Labs 01/25/18 05:55 01/25/18 05:55 Diabetes panel 01/25/18 Range/Units 05:55 Sodium 142 (136-145) mEq/L Potassium 4.1 (3.5-5.1) mEq/L Chloride 108 H (98-107) mEq/L Carbon Dioxide 26 (23-29) mEq/L BUN 18 (8-23) mg/dL Creatinine 0.97 (0.70-1.30) mg/dL Glucose 149 H (70-105) mg/dL Calcium 9.1 (8.6-10.3) mg/dL Calcium panel 01/25/18 Range/Units 05:55 Calcium 9.1 (8.6-10.3) mg/dL Pituitary panel 01/25/18 Range/Units 05:55 Sodium 142 (136-145) mEq/L Potassium 4.1 (3.5-5.1) mEq/L Chloride 108 H (98-107) mEq/L Carbon Dioxide 26 (23-29) mEq/L BUN 18 (8-23) mg/dL Creatinine 0.97 (0.70-1.30) mg/dL Glucose 149 H (70-105) mg/dL Calcium 9.1 (8.6-10.3) mg/dL Adrenal panel 01/25/18 Range/Units 05:55 Sodium 142 (136-145) mEq/L Potassium 4.1 (3.5-5.1) mEq/L Chloride 108 H (98-107) mEq/L Carbon Dioxide 26 (23-29) mEq/L BUN 18 (8-23) mg/dL Creatinine 0.97 (0.70-1.30) mg/dL Glucose 149 H (70-105) mg/dL Calcium 9.1 (8.6-10.3) mg/dL Consult Discharge Plan - Plan Referrals: Monique Oseguera MD [Primary Care Provider] - 01/31/18 10:00 am
[2018-01-25] MEDS: Insulin LISPRO 300 UNITS/3 ML VIAL SQ SCH (08:46)
[2018-01-25] MEDS: cefTRIAXone 1,000 MG in Water for inj. (sterile) 20 ML 10 ML IVP SCH (09:09)
[2018-01-25] MEDS: *HR* OxyCODONE Immed Rel 5 MG TABLET PO PRN (09:10)
[2018-01-25] MEDS: Pregabalin 75 MG CAPSULE PO SCH (09:10)
[2018-01-25] MEDS: Aspirin Enteric Coated 81 MG Tablet PO SCH (09:11)
--- NOTE | 2018-01-25 09:44 | Discharge Summary ---
Orders not resulted at time of discharge: Pending orders 01/23/18 10:30 UA w. reflex culture [Urinalysis Reflex Cult & Micro] [URIN] Stat 01/23/18 16:08 Calculi (stone) Analysis Routine Surgical Pathology [PTH] Routine Date of Encounter: 01/25/18 Time of Encounter: 09:42 - Discharge Diagnosis (1) Ureteral stenosis, left Priority: Primary Status: Acute (2) Gross hematuria Priority: Primary Status: Acute (3) Hydronephrosis, left Priority: Primary Status: Acute (4) T2DM (type 2 diabetes mellitus) Priority: Secondary Status: Chronic Qualifiers: Diabetes mellitus termite technician insulin use: without termite technician use Diabetes mellitus complication status: without complication Qualified Code(s): E11.9 - Type 2 diabetes mellitus without complications (5) Chronic low back pain Priority: Secondary Status: Chronic Qualifiers: Back pain laterality: bilateral Sciatica presence: without sciatica Qualified Code(s): M54.5 - Low back pain; G89.29 - Other chronic pain Hospital course: The patient is a 77-year-old male. He was admitted with left flank pain. We found him to have left mid ureteral stone/left hydronephrosis; with gross hematuria. The patient has had recurrent nephrolithiasis. We presented him to urology. Subsequently, the patient had the stone removed. A stent was left in place. It will be removed on February 21 and 7:30 AM by urology. The patient feels good. His left flank pain is mild. No nausea or vomiting. Denies chest pain and difficulty breathing. He does have chronic low back pain. He suffers from chronic abdominal hernia. His vitals are listed separately. Lungs: Normal breath sounds with no crackles and wheezes bilaterally. Heart: Heart is regular with no gallop or murmur. Abdomen: Soft and not tender. Discharge discussed with: patient, nurse - Time Spent with Patient Total time spent providing and/or coordinating discharge services: Greater than 30 minutes (40 minutes..) - Discharge Medications Prescriptions: HYDROcodone/Acet 7.5/325 mg [[place] 7.5-325 mg] 1 tab PO Q6HR PRN 5 Days #20 tablet PRN Reason: Pain Home Medications: Aspirin [Lo-Dose Aspirin EC] 81 mg PO DAILY 10/05/17 [History] Glimepiride [Amaryl] 4 mg PO BID 10/05/17 [History] Cyanocobalamin (Vitamin B-12) [Vitamin B-12] 1,000 mcg PO DAILY 01/23/18 [History] Metformin HCl 500 mg PO BID 01/23/18 [History] Pregabalin [Lyrica] 75 mg PO BID 01/23/18 [History] HYDROcodone/Acet 7.5/325 mg [[place] 7.5-325 mg] 1 tab PO Q6HR PRN 5 Days #20 tablet 01/25/18 [Rx] Allergies/Adverse Reactions: Allergy/AdvReac Type Severity Reaction Status Date / Time No Known Allergies Allergy Verified 01/23/18 09:36 Date of admission: 01/24/18 17:15 Primary care physician: Monique Oseguera MD Consults: 01/23/18 12:46 Consult to Urology [CONS] Stat Consulting Provider: Urology Queenie Reason for Consult: renal bleeding, clot in bladder. Spoke with Dr. Oscar @ 12:30pm Call Completed: Yes Discharging clinician: Brooks Cardona Anticipated date of discharge: 01/25/18 - Constitutional Vitals: Temp Pulse Resp BP Pulse Ox 98.8 F 68 15 162/85 93 01/25/18 03:40 01/25/18 03:40 01/25/18 03:40 01/25/18 03:40 01/25/18 03:40 General appearance: Present: A&O X 3, pleasant, no acute distress, answers questions appropriately Exam: xx - Patient Status Disposition: Home, Self-Care Condition: Good Functional capacity at discharge: independent ambulation Overall status at discharge: patient is progressing back to baseline - Discharge Instructions Instructions: Ureteral Stent Placement (DC) Follow Up With: Kenton Argueta MD [Partnered Physician] - 02/21/18 7:30 am Monique Osegeura MD [Primary Care Provider] - 01/31/18 10:00 am Additional Instructions: THE PATIENT HAS A FOLLOW-UP VISIT WITH DR. ARGUETA ON 02/21 AT 7:30 AM.. - Diet and Activity Activity: resume usual activities as tolerated Diet: diabetic diet - VTE Reasons for not Prescribing Prophylaxis: Treatment not Indicated - Low risk for VTE Deep Vein Thrombosis/Pulmonary Embolism Present on Admission: No
[2018-01-29 11:13] LABS: Calculi Mass 14 mg
== END 2018-01-25 11:03 | disposition home or self-care (01) | DRG 670 ==
LOC: EMEROOARM 09:25 → 3ANU 09:25 → SUATTDRO 01-24 17:15
PROVIDERS: ADMIT Internal Medicine Nephrology; ATTEND Internal Medicine

== ENCOUNTER 2018-06-25 17:56 | Inpatient (IN) ==
--- NOTE | 2018-06-25 19:03 | Emergency Department Note ---
Disposition Clinical Impression: Hypoxia Community acquired pneumonia Qualifiers: Laterality: unspecified laterality Qualified Code(s): J18.9 - Pneumonia, unspecified organism Disposition: Admitted As Inpatient Condition: Good Time of Disposition: 00:43 SOB HPI - General Chief Complaint: ED Shortness of Breath/Dyspnea Stated Complaint: fever, vomiting, headache Time Seen by Provider: 06/25/18 18:05 Source: patient Limitations: no limitations Nursing Notes Reviewed: Yes Vital Signs Reviewed: Yes - History of Present Illness 77yo male presents from home for evaluation of multiple symptoms. Onset 9-10 days ago; patient notes he has been bed ridden with no Po fluids or food with subsequent weakness.. He has shortness of breath worse with light exertion. Associated with subjective waxing and waning fever, dry cough, dizziness only when standing up. Sharp left sided chest pain with cough, non-radiating. Emesis today, non-bloody, non-bilious. He has known hematuria currently followed by urology Dr. Argueta. PMH: CAD, DM , GERD ROS: Pos: as above Neg: abdominal pain, back pain, flank pain, dysuria, focal numbness or tingling or weakness. - Related Data Home Medications Medication Instructions Recorded Confirmed Aspirin [Lo-Dose Aspirin EC] 81 mg PO DAILY 10/05/17 01/23/18 Glimepiride [Amaryl] 4 mg PO BID 10/05/17 01/23/18 Cyanocobalamin (Vitamin B-12) 1,000 mcg PO DAILY 01/23/18 01/23/18 [Vitamin B-12] Metformin HCl 500 mg PO BID 01/23/18 01/23/18 Pregabalin [Lyrica] 75 mg PO BID 01/23/18 01/23/18 Previous Rx's Medication Instructions Recorded Ciprofloxacin [Cipro] 500 mg PO BID #20 tablet 04/06/18 Allergies Allergy/AdvReac Type Severity Reaction Status Date / Time No Known Allergies Allergy Verified 01/23/18 09:36 All systems ED: reviewed and negative except as stated. Review of Systems: As Per HPI Past Medical History - Past Medical History Medical history: Reports: arthritis, coronary artery disease, diabetes, GERD Surgical history: Reports: angioplasty/stent, cholecystectomy, herniorrhaphy, other Psychiatric history: Reports: depression - Social History Smoking Status: Former smoker Smokeless Tobacco Status: No Alcohol use: Reports: none Drug use: Reports: none Physical Exam Vital Signs Reviewed General: Patient is alert, oriented, and in mild respiratory distress. Req uiring 2 L nasal cannula to maintain saturation 95-96%. Head: atraumatic, normocephalic Eye: normal appearance, PERRL, EOMI with no vertical staggers., no scleral icterus, no conjunctival injection ENT: mucous membranes moist, normal external ear exam Neck: normal inspection, trachea midline, full ROM Chest: normal inspection, symmetric chest rise Respiratory: Good respiratory effort. Left lower lobe crackles. No wheeze. Cardiovascular: Regular rate and rhythm. No clicks, rubs, gallops, or murmors. Normal heart sounds. Abdomen: Bowel sounds present normoactive. Abdomen is soft, nondistended, and nontender. No guarding or rebound. Musculoskeletal: Spontaneously moving all extremities. Skin: warm, dry, intact. Neuro: GCS 15. Strength 5/5 equal bilateral upper and lower extremity. Sens ation light touch and equal in bilateral upper and lower extremity's. No slurring of speech. Patient is answered all questions briskly and appropriately. Psych: Patient's affect is appropriate for situation. - General Limitations: no limitations General appearance: alert, in no apparent distress Course Course Narrative: EKG dated 06/25/18 and 18:47 interpreted as sinus rhythm with a rate of 84. NV 151, QRS 143, QTc 477. Normal axis. Nonspecific ST-T changes. Compared to pr evious dated 09/16/2017 showing no acute ischemic changes comparison. Chest x-ray shows mild bibasilar opacities with radiology favoring atelectasis. Serum hematology is unremarkable. Serum chemistries unremarkable. Urinalysis is consistent with his history of hematuria. Clinical concern is for community-acquired pneumonia. Patient's left lower lobe has crackles; the context of his presentation this is most consistent with community-acquired pneumonia. Will provide empiric azithromycin and c eftriaxone. While at rest in bed, I turned patient's oxygen off. He was saturating 91-92% without exertion. He does not have oxygen at home. He is agreeable to admission for continued evaluation for his community-acquired pneumonia and respiratory support. I discussed the above with the admitting hospitalist, Dr. Olsen, who agrees to accept the patient for community-acquired pneumonia, acute respiratory failure. Chest X-Ray 06/25/18 18:29 IMPRESSION: Mild bibasilar opacities, which are favored to represent atelectasis. D/ / Norman Arizmendi MD / Norman Arizmendi MD Interpreting Provider: Norman Arizmendi MD Vital Signs Temperature 98.5 F 06/25/18 18:05 Pulse Rate 75 06/25/18 18:05 Respiratory Rate 20 06/25/18 18:05 Blood Pressure 143/90 06/25/18 18:05 O2 Sat by Pulse Oximetry 91 06/25/18 18:05 Temperature 98.2 F 06/25/18 22:33 Pulse Rate 86 06/25/18 22:33 Respiratory Rate 20 06/25/18 22:33 Blood Pressure 157/92 06/25/18 22:33 O2 Sat by Pulse Oximetry 92 06/25/18 22:45 Oxygen Delivery Oxygen Delivery Nasal Cannula Shortness of Breath/Dyspnea - Lab Data Result diagrams: 06/25/18 18:41 06/25/18 18:41 Lab Results 06/25/18 06/25/18 06/25/18 Range/Units 18:41 18:41 18:41 WBC 9.6 (4.3-11.1) K/mcL RBC 4.86 (4.19-5.50) M/mcL Hgb 14.1 (12.9-16.9) g/dL Hct 42.3 (37.5-50.1) % MCV 87.0 (83.0-100.0) fL MCH 29.0 (28.0-33.3) pg MCHC 33.3 (31.6-35.5) g/dL RDW 13.2 (11.5-14.5) % Plt Count 208 (140-400) K/mcL MPV 10.8 (9.4-12.4) fL Immature Gran % 1.6 (0-4) % Seg Neutrophils % 68.4 % Lymphocytes % 15.4 % Monocytes % 14.0 % Eosinophils % 0.0 % Basophils % 0.6 % Neutrophils # 6.6 (1.6-8.9) K/mcL Lymphocytes # 1.5 (0.6-4.6) K/mcL Monocytes # 1.3 (0.0-1.3) K/mcL Eosinophils # 0.0 (0.0-0.6) K/mcL Basophils # 0.1 (0.0-0.2) K/mcL Reactive Lymphocytes Present A (Not Present) Platelet Estimate Normal (Normal) Large Platelets Present A (Not Present) PT 13.8 H (9.4-12.1) Seconds INR 1.2 APTT 30.2 (26.0-36.0) Seconds Sodium 134 L (136-145) mEq/L Potassium 3.3 L (3.5-5.1) mEq/L Chloride 99 (98-107) mEq/L Carbon Dioxide 23 (23-29) mEq/L BUN 11 (8-23) mg/dL Creatinine 0.70 (0.70-1.30) mg/dL Est GFR ( Amer) > 60 (> 60) Est GFR (Non-Af Amer) > 60 (> 60) BUN/Creatinine Ratio 16 (6-26) Glucose 184 H (70-105) mg/dL Calculated Osmolality 282 (280-300) Lactic Acid (0.5-2.2) mmol/L Calcium 8.8 (8.6-10.3) mg/dL Phosphorus 2.0 L (2.7-4.5) mg/dL Magnesium 1.8 (1.6-2.6) mg/dL Total Bilirubin 1.3 H (0.3-1.0) mg/dL Direct Bilirubin 0.4 H (0.0-0.2) mg/dL Indirect Bilirubin 0.9 (0.0-1.2) mg/dL AST 22 (13-39) Units/L ALT 16 (7-52) Units/L Alkaline Phosphatase 50 (34-104) Units/L Troponin I < 0.03 (< 0.04) ng/mL B-Natriuretic Peptide (Less than 100) pg/mL Serum Total Protein 6.5 (6.4-8.9) g/dL Albumin 3.3 L (3.5-5.7) g/dL Globulin 3.2 (2.4-3.5) g/dL Albumin/Globulin Ratio 1.0 L (1.1-2.2) Urine Color (Yellow) Urine Clarity (Clear) Urine pH (5.0-8.0) pH Units Ur Specific [place] (1.010-1.025) Urine Protein (Neg-Trace) mg/dL Urine Glucose (UA) (Normal) mg/dL Urine Ketones (Negative) mg/dL Urine Blood (Negative) Urine Nitrite (Negative) Urine Bilirubin (Negative) Urine Urobilinogen (Normal) mg/dL Ur Leukocyte Esterase (Negative) Urine Microscopic RBC (0-3) per hpf Urine Microscopic WBC (0-3) per hpf Ur Squamous Epith Cells (None-Few) per lpf Urine Bacteria (None-Few) per hpf Hyaline Casts (None-Few) per lpf Ur Culture Indicated? (NO) 06/25/18 06/25/18 06/25/18 Range/Units 18:41 18:41 20:08 WBC (4.3-11.1) K/mcL RBC (4.19-5.50) M/mcL Hgb (12.9-16.9) g/dL Hct (37.5-50.1) % MCV (83.0-100.0) fL MCH (28.0-33.3) pg MCHC (31.6-35.5) g/dL RDW (11.5-14.5) % Plt Count (140-400) K/mcL MPV (9.4-12.4) fL Immature Gran % (0-4) % Seg Neutrophils % % Lymphocytes % % Monocytes % % Eosinophils % % Basophils % % Neutrophils # (1.6-8.9) K/mcL Lymphocytes # (0.6-4.6) K/mcL Monocytes # (0.0-1.3) K/mcL Eosinophils # (0.0-0.6) K/mcL Basophils # (0.0-0.2) K/mcL Reactive Lymphocytes (Not Present) Platelet Estimate (Normal) Large Platelets (Not Present) PT (9.4-12.1) Seconds INR APTT (26.0-36.0) Seconds Sodium (136-145) mEq/L Potassium (3.5-5.1) mEq/L Chloride (98-107) mEq/L Carbon Dioxide (23-29) mEq/L BUN (8-23) mg/dL Creatinine (0.70-1.30) mg/dL Est GFR ( Amer) (> 60) Est GFR (Non-Af Amer) (> 60) BUN/Creatinine Ratio (6-26) Glucose (70-105) mg/dL Calculated Osmolality (280-300) Lactic Acid 1.4 (0.5-2.2) mmol/L Calcium (8.6-10.3) mg/dL Phosphorus (2.7-4.5) mg/dL Magnesium (1.6-2.6) mg/dL Total Bilirubin (0.3-1.0) mg/dL Direct Bilirubin (0.0-0.2) mg/dL Indirect Bilirubin (0.0-1.2) mg/dL AST (13-39) Units/L ALT (7-52) Units/L Alkaline Phosphatase (34-104) Units/L Troponin I (< 0.04) ng/mL B-Natriuretic Peptide 66 (Less than 100) pg/mL Serum Total Protein (6.4-8.9) g/dL Albumin (3.5-5.7) g/dL Globulin (2.4-3.5) g/dL Albumin/Globulin Ratio (1.1-2.2) Urine Color Dark Yellow (Yellow) Urine Clarity Clear (Clear) Urine pH 6.0 (5.0-8.0) pH Units Ur Specific [place] 1.026 H (1.010-1.025) Urine Protein 100 H (Neg-Trace) mg/dL Urine Glucose (UA) 100 H (Normal) mg/dL Urine Ketones 40 H (Negative) mg/dL Urine Blood Small H (Negative) Urine Nitrite Negative (Negative) Urine Bilirubin Small H (Negative) Urine Urobilinogen 4.0 H (Normal) mg/dL Ur Leukocyte Esterase Negative (Negative) Urine Microscopic RBC 5-15 H (0-3) per hpf Urine Microscopic WBC 5-15 H (0-3) per hpf Ur Squamous Epith Cells Moderate H (None-Few) per lpf Urine Bacteria Moderate H (None-Few) per hpf Hyaline Casts None Seen (None-Few) per lpf Ur Culture Indicated? NO (NO)
[2018-06-25 19:08] LABS: Basophils # 0.1 K/mcL (0.0-0.2); Basophils % 0.6 %; Hematocrit 42.3 % (37.5-50.1); Hemoglobin 14.1 g/dL (12.9-16.9); Immature Granulocytes % 1.6 % (0-4); Lymphocytes # 1.5 K/mcL (0.6-4.6); Lymphocytes % 15.4 %; Mean Corpuscular HGB Conc 33.3 g/dL (31.6-35.5); Mean Platelet Volume 10.8 fL (9.4-12.4); Monocytes # 1.3 K/mcL (0.0-1.3); Platelet Count 208 K/mcL (140-400); Red Blood Count 4.86 M/mcL (4.19-5.50); Red Cell Distribution Width 13.2 % (11.5-14.5); Segmented Neutrophils % 68.4 %
[2018-06-25 19:09] LABS: Neutrophils # 6.6 K/mcL (1.6-8.9)
[2018-06-25 19:15] LABS: INR 1.2; Prothrombin Time 13.8 Seconds (9.4-12.1)
[2018-06-25 19:18] LABS: Activated Partial Thrombo Time 30.2 Seconds (26.0-36.0)
[2018-06-25 19:26] LABS: Large Platelets Present (Not Present); Platelet Estimate Normal (Normal); Reactive Lymphocytes Present (Not Present)
[2018-06-25 19:31] LABS: Alanine Aminotransferase 16 Units/L (7-52); Albumin 3.3 g/dL (3.5-5.7); Alkaline Phosphatase 50 Units/L (34-104); Aspartate Amino Transferase 22 Units/L (13-39); BUN/Creatinine Ratio 16 (6-26); Bilirubin,Direct 0.4 mg/dL (0.0-0.2); Bilirubin,Indirect 0.9 mg/dL (0.0-1.2); Bilirubin,Total 1.3 mg/dL (0.3-1.0); Blood Urea Nitrogen 11 mg/dL (8-23); Calcium 8.8 mg/dL (8.6-10.3); Carbon Dioxide 23 mEq/L (23-29); Chloride 99 mEq/L (98-107); Globulin 3.2 g/dL (2.4-3.5); Glucose 184 mg/dL (70-105); Magnesium 1.8 mg/dL (1.6-2.6); Osmolality,Calculated 282 (280-300); Potassium 3.3 mEq/L (3.5-5.1); Sodium 134 mEq/L (136-145); Total Protein 6.5 g/dL (6.4-8.9); Troponin I < 0.03 ng/mL (< 0.04); eGFR For Non-African Americans > 60 (> 60)
[2018-06-25 20:25] LABS: Bilirubin,Urine Small (Negative); Blood,Urine Small (Negative); Clarity,Urine Clear (Clear); Color,Urine Dark Yellow (Yellow); Glucose,Urine (UA) 100 mg/dL (Normal); Ketones,Urine 40 mg/dL (Negative); Leukocyte Esterase,Urine Negative (Negative); Nitrite,Urine Negative (Negative); Protein,Urine 100 mg/dL (Neg-Trace); Specific Gravity,Urine 1.026 (1.010-1.025)
[2018-06-25 20:27] LABS: Hyaline Casts,Urine None Seen per lpf (None-Few); Squamous Epithelial Cell,Urine Moderate per lpf (None-Few)
[2018-06-25 20:37] LABS: Bacteria,Urine Moderate per hpf (None-Few)
[2018-06-25] MEDS ORDERED: Azithromycin 500 MG in D5% in Water 250 ML IVPB ONE (21:00)
[2018-06-25] MEDS ORDERED: cefTRIAXone 1,000 MG in 0.9 % Sodium Chloride Mini Bag 100 ML IVPB ONE (21:04)
--- NOTE | 2018-06-25 21:06 | Emergency Department Note ---
Disposition Clinical Impression: Hypoxia Community acquired pneumonia Qualifiers: Laterality: unspecified laterality Qualified Code(s): J18.9 - Pneumonia, unspecified organism Disposition: Admitted As Inpatient Condition: Good Referrals: Monique Oseguera MD [Primary Care Provider] - Forms: ED Satisfaction Letter General Adult HPI - General Chief complaint: ED Shortness of Breath/Dyspnea Stated complaint: fever, vomiting, headache Time Seen by Provider: 06/25/18 18:05 Source: patient Limitations: no limitations - History of Present Illness Pain Scale: 8 - Related Data Home Medications Medication Instructions Recorded Confirmed Aspirin [Lo-Dose Aspirin EC] 81 mg PO DAILY 10/05/17 01/23/18 Glimepiride [Amaryl] 4 mg PO BID 10/05/17 01/23/18 Cyanocobalamin (Vitamin B-12) 1,000 mcg PO DAILY 01/23/18 01/23/18 [Vitamin B-12] Metformin HCl 500 mg PO BID 01/23/18 01/23/18 Pregabalin [Lyrica] 75 mg PO BID 01/23/18 01/23/18 Previous Rx's Medication Instructions Recorded Ciprofloxacin [Cipro] 500 mg PO BID #20 tablet 04/06/18 Allergies Allergy/AdvReac Type Severity Reaction Status Date / Time No Known Allergies Allergy Verified 01/23/18 09:36 Past Medical History - Past Medical History Medical history: Reports: arthritis, coronary artery disease, diabetes, GERD Surgical history: Reports: angioplasty/stent, cholecystectomy, herniorrhaphy, other Psychiatric history: Reports: depression - Social History Smoking Status: Former smoker Smokeless Tobacco Status: No Alcohol use: Reports: none Drug use: Reports: none Physical Exam - General Limitations: no limitations General appearance: alert, in no apparent distress Course Vital Signs Temperature 98.5 F 06/25/18 18:05 Pulse Rate 75 06/25/18 18:05 Respiratory Rate 20 06/25/18 18:05 Blood Pressure 143/90 06/25/18 18:05 O2 Sat by Pulse Oximetry 91 06/25/18 18:05 Temperature 98.5 F 06/25/18 18:05 Pulse Rate 83 06/25/18 20:52 Respiratory Rate 23 06/25/18 20:52 Blood Pressure 163/99 06/25/18 20:52 O2 Sat by Pulse Oximetry 94 06/25/18 20:52 Oxygen Delivery Oxygen Delivery Nasal Cannula Medical Decision Making - Lab Data Result diagrams: 06/25/18 18:41 06/25/18 18:41 Lab Results 06/25/18 06/25/18 06/25/18 Range/Units 18:41 18:41 18:41 WBC 9.6 (4.3-11.1) K/mcL RBC 4.86 (4.19-5.50) M/mcL Hgb 14.1 (12.9-16.9) g/dL Hct 42.3 (37.5-50.1) % MCV 87.0 (83.0-100.0) fL MCH 29.0 (28.0-33.3) pg MCHC 33.3 (31.6-35.5) g/dL RDW 13.2 (11.5-14.5) % Plt Count 208 (140-400) K/mcL MPV 10.8 (9.4-12.4) fL Immature Gran % 1.6 (0-4) % Seg Neutrophils % 68.4 % Lymphocytes % 15.4 % Monocytes % 14.0 % Eosinophils % 0.0 % Basophils % 0.6 % Neutrophils # 6.6 (1.6-8.9) K/mcL Lymphocytes # 1.5 (0.6-4.6) K/mcL Monocytes # 1.3 (0.0-1.3) K/mcL Eosinophils # 0.0 (0.0-0.6) K/mcL Basophils # 0.1 (0.0-0.2) K/mcL Reactive Lymphocytes Present A (Not Present) Platelet Estimate Normal (Normal) Large Platelets Present A (Not Present) PT 13.8 H (9.4-12.1) Seconds INR 1.2 APTT 30.2 (26.0-36.0) Seconds Sodium 134 L (136-145) mEq/L Potassium 3.3 L (3.5-5.1) mEq/L Chloride 99 (98-107) mEq/L Carbon Dioxide 23 (23-29) mEq/L BUN 11 (8-23) mg/dL Creatinine 0.70 (0.70-1.30) mg/dL Est GFR ( Amer) > 60 (> 60) Est GFR (Non-Af Amer) > 60 (> 60) BUN/Creatinine Ratio 16 (6-26) Glucose 184 H (70-105) mg/dL Calculated Osmolality 282 (280-300) Lactic Acid (0.5-2.2) mmol/L Calcium 8.8 (8.6-10.3) mg/dL Phosphorus 2.0 L (2.7-4.5) mg/dL Magnesium 1.8 (1.6-2.6) mg/dL Total Bilirubin 1.3 H (0.3-1.0) mg/dL Direct Bilirubin 0.4 H (0.0-0.2) mg/dL Indirect Bilirubin 0.9 (0.0-1.2) mg/dL AST 22 (13-39) Units/L ALT 16 (7-52) Units/L Alkaline Phosphatase 50 (34-104) Units/L Troponin I < 0.03 (< 0.04) ng/mL B-Natriuretic Peptide (Less than 100) pg/mL Serum Total Protein 6.5 (6.4-8.9) g/dL Albumin 3.3 L (3.5-5.7) g/dL Globulin 3.2 (2.4-3.5) g/dL Albumin/Globulin Ratio 1.0 L (1.1-2.2) Urine Color (Yellow) Urine Clarity (Clear) Urine pH (5.0-8.0) pH Units Ur Specific [place] (1.010-1.025) Urine Protein (Neg-Trace) mg/dL Urine Glucose (UA) (Normal) mg/dL Urine Ketones (Negative) mg/dL Urine Blood (Negative) Urine Nitrite (Negative) Urine Bilirubin (Negative) Urine Urobilinogen (Normal) mg/dL Ur Leukocyte Esterase (Negative) Urine Microscopic RBC (0-3) per hpf Urine Microscopic WBC (0-3) per hpf Ur Squamous Epith Cells (None-Few) per lpf Urine Bacteria (None-Few) per hpf Hyaline Casts (None-Few) per lpf Ur Culture Indicated? (NO) 06/25/18 06/25/18 06/25/18 Range/Units 18:41 18:41 20:08 WBC (4.3-11.1) K/mcL RBC (4.19-5.50) M/mcL Hgb (12.9-16.9) g/dL Hct (37.5-50.1) % MCV (83.0-100.0) fL MCH (28.0-33.3) pg MCHC (31.6-35.5) g/dL RDW (11.5-14.5) % Plt Count (140-400) K/mcL MPV (9.4-12.4) fL Immature Gran % (0-4) % Seg Neutrophils % % Lymphocytes % % Monocytes % % Eosinophils % % Basophils % % Neutrophils # (1.6-8.9) K/mcL Lymphocytes # (0.6-4.6) K/mcL Monocytes # (0.0-1.3) K/mcL Eosinophils # (0.0-0.6) K/mcL Basophils # (0.0-0.2) K/mcL Reactive Lymphocytes (Not Present) Platelet Estimate (Normal) Large Platelets (Not Present) PT (9.4-12.1) Seconds INR APTT (26.0-36.0) Seconds Sodium (136-145) mEq/L Potassium (3.5-5.1) mEq/L Chloride (98-107) mEq/L Carbon Dioxide (23-29) mEq/L BUN (8-23) mg/dL Creatinine (0.70-1.30) mg/dL Est GFR ( Amer) (> 60) Est GFR (Non-Af Amer) (> 60) BUN/Creatinine Ratio (6-26) Glucose (70-105) mg/dL Calculated Osmolality (280-300) Lactic Acid 1.4 (0.5-2.2) mmol/L Calcium (8.6-10.3) mg/dL Phosphorus (2.7-4.5) mg/dL Magnesium (1.6-2.6) mg/dL Total Bilirubin (0.3-1.0) mg/dL Direct Bilirubin (0.0-0.2) mg/dL Indirect Bilirubin (0.0-1.2) mg/dL AST (13-39) Units/L ALT (7-52) Units/L Alkaline Phosphatase (34-104) Units/L Troponin I (< 0.04) ng/mL B-Natriuretic Peptide 66 (Less than 100) pg/mL Serum Total Protein (6.4-8.9) g/dL Albumin (3.5-5.7) g/dL Globulin (2.4-3.5) g/dL Albumin/Globulin Ratio (1.1-2.2) Urine Color Dark Yellow (Yellow) Urine Clarity Clear (Clear) Urine pH 6.0 (5.0-8.0) pH Units Ur Specific [place] 1.026 H (1.010-1.025) Urine Protein 100 H (Neg-Trace) mg/dL Urine Glucose (UA) 100 H (Normal) mg/dL Urine Ketones 40 H (Negative) mg/dL Urine Blood Small H (Negative) Urine Nitrite Negative (Negative) Urine Bilirubin Small H (Negative) Urine Urobilinogen 4.0 H (Normal) mg/dL Ur Leukocyte Esterase Negative (Negative) Urine Microscopic RBC 5-15 H (0-3) per hpf Urine Microscopic WBC 5-15 H (0-3) per hpf Ur Squamous Epith Cells Moderate H (None-Few) per lpf Urine Bacteria Moderate H (None-Few) per hpf Hyaline Casts None Seen (None-Few) per lpf Ur Culture Indicated? NO (NO) Attestation Statement - Attestation Attestation: I examined this patient and my medical decision-making was reviewed with the Resident Physician. I agree with the documented findings, disposition and treatment plan as described except to the extent set forth below. 77 year old male presnets to the ED wih complaints of dyepsna and hypoxia and is 92% on 3LNC and otherwise decompensate to below 90% on room Air and does not typically need supplemental oxygen. Patient otherwise appears to have clinical pneumonia although CXR appers negative he is experincing productive cough. PAtinet will be admitted to medicine
[2018-06-26] MEDS ORDERED: Naloxone 0.4 MG/ML INJ IVP PRN (02:39)
[2018-06-26] MEDS ORDERED: D5% in Water 1,000 ML IVC PRN (02:41)
[2018-06-26] MEDS ORDERED: Dextrose Gel 15 GM/37.5 ML TUBE PO PRN ×2 (02:41)
[2018-06-26] MEDS ORDERED: *HR* Dextrose 50 % in Water (Syg) 50 ML SYRINGE IVP PRN (02:41)
[2018-06-26] MEDS ORDERED: Azithromycin 500 MG in D5% in Water 250 ML IVPB SCH (03:00)
[2018-06-26] MEDS: Ipratropium/Albuterol Neb 3 ML IH SCH ×3 (04:23→11:37)
--- NOTE | 2018-06-26 04:34 | Internal Med History&Physical ---
Date of Encounter: 06/26/18 Time of Encounter: 03:06 Internal Medicine - H&P: HPI Chief complaint: Pneumonia Admitted From: Emergency Dept Plans for Post Hospital Care: Home History of present illness: Mr. Mendez is a 77 year old male Patient presented to the emergency room for 10 day history of not feeling well. He is also had increased shortness of breath particularly with exertion. He is also had not much of an appetite either. He has been experiencing chest pain with cough as well over the last few days. He has a known history of hematuria and sees urology for this. They have him prescribed ciprofloxacin daily. Over the last several days his symptoms have become worse, and he has had a productive cough. In the emergency room, patient's initial vital signs were within normal limits, CBC was also normal. Patient's BMP showed a slightly low potassium of 3.3 and a sodium of 134. His renal function was intact, glucose was 184, phosphorus was 2.0, total bilirubin was 1.3, and initial troponin was less than 0.03. He has had elevations of bilirubin in the past, this is the lowest it has been. Urin alysis was performed that showed small blood, negative nitrates and leukocyte esterase. There is moderate urine bacteria and 5-15 white blood cells. Chest x-ray was performed that showed mild bibasilar opacities. His physical exam findings however 0.4 a pneumonia, and there was concern enough to start the patient on antibiotics. Blood cultures were drawn, and he was started on azithromycin and ceftriaxone. He was sent to the medical floor for further management. Upon my evaluation patient is resting comfortably in the hospital bed in no acute distress. He denies chest pain, abdominal pain, nausea, vomiting, diarrhea and constipation. He has been short of breath, and is currently on n lukasz cannula. He recollects having a similar remote illness like this about 20 years ago but nothing since. He has a significant past medical history of 2 stents, and esophageal surgery. 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 He was adopted, does not know much of his family history. He is a full code. Past Med Surg Social Fam HX - Past Medical History Medical history: arthritis, coronary artery disease, diabetes, GERD Additional medical history: kidney stones, "stroke to right hand," "Blood clot to right side" Psychiatric history: depression - Past Surgical History Surgical History: angioplasty/stent, cholecystectomy, herniorrhaphy, other Additional surgical history: back,estela,egd,colonoscopy,plif, lithotripsy - Social History Smoking Status: Former smoker Smokeless Tobacco Status: No Alcohol use: none Drug use: none - Family History Father History Unknown: Yes Adopted: Yes Brother Family Member Ethnicity: Non- Living Status: Still Living Hx Family Cardiac Disorders: Yes (CABG) Hx Family Respiratory Disorders: No Hx Family Cancer: No Hx Family GI Disorders: No Hx Family Endocrine Disorder: No Hx Family Neuromuscular Disorders: No Hx Family Neurologic Disorders: No Hx Family HEENT Disorders: No Hx Family Autoimmune Disorders: No Internal Medicine - H&P: Meds Aspirin [Lo-Dose Aspirin EC] 325 mg PO DAILY 10/05/17 [History] Glimepiride [Amaryl] 4 mg PO BID 10/05/17 [History] Cyanocobalamin (Vitamin B-12) [Vitamin B-12] 1,000 mcg PO DAILY 01/23/18 [History] Metformin HCl 500 mg PO BID 01/23/18 [History] Pregabalin [Lyrica] 75 mg PO BID 01/23/18 [History] Allergy/AdvReac Type Severity Reaction Status Date / Time No Known Allergies Allergy Verified 01/23/18 09:36 All Systems PM: A 10-system review of systems was performed and is negative for pertinent findings except as documented above in the HPI. - Constitutional Vitals: Temp Pulse Resp BP Pulse Ox 98.2 F 86 16 157/92 97 06/25/18 22:33 06/25/18 22:33 06/26/18 04:25 06/25/18 22:33 06/26/18 04:25 General appearance: Present: cooperative, A&O X 3, pleasant, no acute distress, answers questions appropriately Exam: - - Head Head exam: Present: normal inspection - Eye Eye exam: Present: EOMI, normal appearance - Neck Neck exam general surgery: Present: full ROM - Respiratory Respiratory exam: Present: rales, wheezes. Absent: CTAB - Cardiovascular Cardiovascular exam: Present: RRR. Absent: diastolic murmur, systolic murmur - GI/Abdominal GI/Abdominal exam: Present: normal bowel sounds, soft. Absent: tenderness - Extremities Exam Extremities exam: Present: warm, radial pulses palpable and symmetrical. Absent: pedal edema, tenderness - Neurological Exam Neurological exam: Absent: motor sensory deficit, no focal deficits, strengths equal and symetr throughout, facial droop, speech deficit Additional comments: Patient has right upper extremity deficit from a previous stroke as well as right lower extremity nerve damage. This is his baseline - Skin Skin exam: Present: dry, normal color, warm Internal Med - H&P Results - Labs CBC & Chem 7: 06/25/18 18:41 06/25/18 18:41 Labs: Short CBC 06/25/18 Range/Units 18:41 WBC 9.6 (4.3-11.1) K/mcL Hgb 14.1 (12.9-16.9) g/dL Hct 42.3 (37.5-50.1) % Plt Count 208 (140-400) K/mcL Neutrophils # 6.6 (1.6-8.9) K/mcL BMP 06/25/18 18:41 Sodium 134 L Potassium 3.3 L Chloride 99 Carbon Dioxide 23 BUN 11 Creatinine 0.70 Glucose 184 H Calcium 8.8 Cardiac Enzymes 06/25/18 Range/Units 18:41 Troponin I < 0.03 (< 0.04) ng/mL Liver Function 06/25/18 Range/Units 18:41 Total Bilirubin 1.3 H (0.3-1.0) mg/dL Direct Bilirubin 0.4 H (0.0-0.2) mg/dL AST 22 (13-39) Units/L ALT 16 (7-52) Units/L Alkaline Phosphatase 50 (34-104) Units/L Albumin 3.3 L (3.5-5.7) g/dL Urine 06/25/18 Range/Units 20:08 Urine Color Dark Yellow (Yellow) Urine Clarity Clear (Clear) Urine pH 6.0 (5.0-8.0) pH Units Ur Specific [place] 1.026 H (1.010-1.025) Urine Protein 100 H (Neg-Trace) mg/dL Urine Glucose (UA) 100 H (Normal) mg/dL - Impressions ITS Impressions Chest X-Ray 06/25/18 18:29 IMPRESSION: Mild bibasilar opacities, which are favored to represent atelectasis. D/ / Norman Arizmendi MD / Norman Arizmendi MD Interpreting Provider: Norman Arizmendi MD - Assessment and Plan (1) Community acquired pneumonia Current Visit: Yes Status: Acute Assessment and plan: On physical exam patient has crackles bilaterally left worse than right. Patient has had a productive cough as well over the last several days. He currently denies chest pain but does have shortness of breath. Blood cultures were drawn in the emergency room and he was given ceftriaxone in the emergency room prior to coming upstairs. Azithromycin was also ordered but was not given until he arrived to the floor. Upon administering azithromycin, patient developed a rash on his back. This antibiotic was then stopped. Patient did not have any pruritus with this reaction. He has no known drug allergies. Discontinue ceftriaxone and azithromycin, start Levaquin. Follow-up blood cultures when they are available Obtain urine antigens Monitor for worsening signs of infection Oxygen supplementation as needed Breathing treatments as needed Qualifiers: Laterality: unspecified laterality Qualified Code(s): J18.9 - Pneumonia, unspecified organism (2) Acute respiratory failure with hypoxia Current Visit: Yes Status: Acute Assessment and plan: Patient not on oxygen at home, he is on 3-4 L currently to maintain saturations in the mid 90s. Treating pneumonia as above Wean oxygen as tolerated (3) Diabetes Current Visit: No Status: Acute Assessment and plan: Patient is not an insulin dependent diabetic Monitor sugars ACHS Diabetic diet Low dose insulin sliding scale as needed Hold home meds Qualifiers: Diabetes mellitus type: type 2 Diabetes mellitus complication status: without complication Qualified Code(s): E11.9 - Type 2 diabetes mellitus without complications (4) Hypophosphatemia Current Visit: Yes Status: Acute Assessment and plan: Phosphate was 2.0 in the emergency room. Supplement phosphorus (5) Hematuria Current Visit: No Status: Chronic Assessment and plan: Patient sees urology for this. Continue to monitor Qualifiers: Hematuria type: unspecified type Qualified Code(s): R31.9 - Hematuria, unspecified (6) DVT prophylaxis Current Visit: No Status: Acute Assessment and plan: SCDs secondary to chronic hematuria - Time Spent With Patient Total time spent is greater than 50% in coordination of care (as documented) at patient's floor/unit and/or counseling patient: Greater than 35 minutes
[2018-06-26] MEDS ORDERED: *HR* Heparin 5,000 UNIT/ML VIAL SQ SCH (06:00)
[2018-06-26 07:57] LABS: Hematocrit 39.2 % (37.5-50.1); Hemoglobin 13.2 g/dL (12.9-16.9); Mean Corpuscular HGB Conc 33.7 g/dL (31.6-35.5); Mean Corpuscular Hemoglobin 29.3 pg (28.0-33.3); Mean Corpuscular Volume 87.1 fL (83.0-100.0); Mean Platelet Volume 11.2 fL (9.4-12.4); Platelet Count 204 K/mcL (140-400); Red Cell Distribution Width 13.2 % (11.5-14.5)
--- NOTE | 2018-06-26 08:08 | Event Note ---
Date of Encounter: 06/26/18 Time of Encounter: 09:15 Mr Mendez is being observed CAP and acute hypoxic resp failure CXR with bibasilar opacities, possible atelectasis, but given presenting symptoms was started on azithro + rocephin for pna. He developed a rash after azithro dose and abxs changed to levaquin. PMHX CAD w PCIx2, arthritis, DM, gerd, esophageal surgery, CVA with RUE residual weakness in the hand, RLE nerve damage w decreased motor function,hematuria for which he follows with Urology, chronic t bili elevation. awake, fatigued, but pleasant and answers all questions appropriately. feeling generally unwell, no sob on current o2, + dry cough this morning but historically productive. + wheezing, sweats and chills. no n/v. gen- alert, awake,appears stated age, tired appearing eyes- pupils equal round cv- reg rate and rhythm, normal s1,s2, no murmurs appreciated, no le edema lungs- scattered rhonci, + exp wheezing, normal resp effort on o2 nc abd- soft, non tender, non distended, + bs skin- no pallor no rash neuro- AAOx3, CN grossly intact Sepsis with 2 SIRS + infectious process suspected to be pna on admit, resolved- lactate normal, no wbc elevation, bl cx pending, ua without reflex to cx, pna treatment as below, he did not receive IVFs in ED or on admit, given mild tachycardia this morning + mild hyponatremia will begin gentle IVFs with repeat Na this afternoon, further fluids pending VS recheck Suspected CAP, org uk-cont levaquin, nebs, attempt to id organism, flu panel neg Acute hypoxic resp failure 2/2 suspected pna- treatment for pna as above, nebs, supplemental 02 nc DM- hold home oral meds, SSI and accuchecks, prn hypoglycemics Hypophosphatemia - s/p IV repletion, repeat in am Hypokalemia- give PO repletion and cont to monitor Chronic hematuria- follow up with established urology outpt CAD with PCI hx stable- though on no home meds for CAD?,cont home asa daily, ekg NSR without any ischemic changes vte ppx scd given chonic hematuria
[2018-06-26 08:15] LABS: BUN/Creatinine Ratio 15 (6-26); Blood Urea Nitrogen 10 mg/dL (8-23); Calcium 8.4 mg/dL (8.6-10.3); Carbon Dioxide 22 mEq/L (23-29); Chloride 97 mEq/L (98-107); Glucose 225 mg/dL (70-105); Osmolality,Calculated 284 (280-300); Potassium 3.6 mEq/L (3.5-5.1); Sodium 134 mEq/L (136-145); eGFR For Non-African Americans > 60 (> 60)
[2018-06-26] MEDS ORDERED: 0.9 % Sodium Chloride 1,000 ML IVC SCH (08:15)
[2018-06-26] MEDS ORDERED: cefTRIAXone 1,000 MG in Water for inj. (sterile) 20 ML 10 ML IVP SCH (09:00)
[2018-06-26] MEDS: Levofloxacin 750 MG/150 ML 750 MG/150 ML BAG IVPB SCH (09:35)
[2018-06-26] MEDS: Insulin LISPRO 300 UNITS/3 ML VIAL SQ SCH ×3 (09:36→17:35)
[2018-06-26] MEDS: Aspirin Enteric Coated 325 MG Tablet PO SCH (09:38)
[2018-06-26] MEDS: Cyanocobalamin (B-12) 1,000 MCG TABLET PO SCH (09:38)
[2018-06-26] MEDS ORDERED: 0.9 % Sodium Chloride 500 ML IVC SCH (09:45)
[2018-06-26] MEDS: predniSONE 20 MG TABLET PO SCH (12:36)
[2018-06-26] MEDS: Levalbuterol Neb 0.63 MG/3 ML IH SCH ×2 (15:33→22:32)
[2018-06-26] MEDS ORDERED: Insulin LISPRO 300 UNITS/3 ML VIAL SQ SCH (21:00)
[2018-06-27] MEDS: Levalbuterol Neb 0.63 MG/3 ML IH SCH ×4 (04:09→22:02)
[2018-06-27 05:36] LABS: Hematocrit 37.7 % (37.5-50.1); Hemoglobin 12.3 g/dL (12.9-16.9); Mean Corpuscular HGB Conc 32.6 g/dL (31.6-35.5); Mean Corpuscular Hemoglobin 29.1 pg (28.0-33.3); Mean Corpuscular Volume 89.1 fL (83.0-100.0); Mean Platelet Volume 10.8 fL (9.4-12.4); Platelet Count 247 K/mcL (140-400); Red Blood Count 4.23 M/mcL (4.19-5.50); Red Cell Distribution Width 13.2 % (11.5-14.5)
[2018-06-27 05:54] LABS: BUN/Creatinine Ratio 18 (6-26); Blood Urea Nitrogen 13 mg/dL (8-23); Calcium 8.8 mg/dL (8.6-10.3); Carbon Dioxide 27 mEq/L (23-29); Chloride 102 mEq/L (98-107); Glucose 345 mg/dL (70-105); Magnesium 1.9 mg/dL (1.6-2.6); Osmolality,Calculated 296 (280-300); Phosphorous 2.9 mg/dL (2.7-4.5); Potassium 3.9 mEq/L (3.5-5.1); Sodium 136 mEq/L (136-145); eGFR For Non-African Americans > 60 (> 60)
[2018-06-27 06:07] LABS: Eosinophils # 0.2 K/mcL (0.0-0.6); Lymphocytes # 0.8 K/mcL (0.6-4.6); Monocytes # 1.2 K/mcL (0.0-1.3); Neutrophils # 5.4 K/mcL (1.6-8.9); Platelet Estimate Normal (Normal); Reactive Lymphocytes Present (Not Present)
[2018-06-27] MEDS: Insulin LISPRO 300 UNITS/3 ML VIAL SQ SCH ×3 (09:27→16:45)
[2018-06-27] MEDS: Cyanocobalamin (B-12) 1,000 MCG TABLET PO SCH (09:28)
[2018-06-27] MEDS: Levofloxacin 750 MG/150 ML 750 MG/150 ML BAG IVPB SCH (09:28)
[2018-06-27] MEDS: predniSONE 20 MG TABLET PO SCH (09:28)
[2018-06-27] MEDS: Pregabalin 50 MG CAPSULE PO SCH ×2 (09:28→20:45)
[2018-06-27] MEDS: Aspirin Enteric Coated 325 MG Tablet PO SCH (09:28)
--- NOTE | 2018-06-27 10:23 | Internal Med Progress Note ---
<Stephie Santiago - Last Filed: 06/27/18 13:07> Hospitalist Progress Note - Encounter Date of Encounter: 06/27/18 - Exam Vitals: Temp Pulse Resp BP Pulse Ox 97.5 F L 72 15 151/83 93 06/27/18 07:17 06/27/18 07:17 06/27/18 09:53 06/27/18 07:17 06/27/18 09:53 - Time Spent with Patient Total time spent is greater than 50% in coordination of care (as documented) at patient's floor/unit and/or counseling patient: Internal Medicine: Result - Labs CBC & Chem 7: 06/27/18 04:57 06/27/18 04:57 Labs: Short CBC 06/27/18 Range/Units 04:57 WBC 7.5 (4.3-11.1) K/mcL Hgb 12.3 L (12.9-16.9) g/dL Hct 37.7 (37.5-50.1) % Plt Count 247 (140-400) K/mcL Neutrophils # 5.4 (1.6-8.9) K/mcL BMP 06/26/18 06/27/18 14:40 04:57 Sodium 133 L 136 Potassium 3.9 Chloride 102 Carbon Dioxide 27 BUN 13 Creatinine 0.72 Glucose 345 H Calcium 8.8 - ABG Interpretation ABG results: PT/INR, D-dimer PT 13.8 Seconds (9.4-12.1) H 06/25/18 18:41 Consult Discharge Plan - Plan Referrals: Monique Oseguera MD [Primary Care Provider] - - Attending Attestation I examined this patient and my medical decision-making was reviewed with the Resident Physician Dr Martinez. I agree with the documented findings, disposition and treatment plan as described except to the extent set forth below. Mr Mendez is being observed CAP and acute hypoxic resp failure awake, sob is slowly improving, ease of respiration improved today, audible wheezing resolved, + cough with sputum, no fevers or chills. no cp, pressure or palpitations. fatigued gen- alert, awake,appears stated age, tired appearing cv- reg rate and rhythm, normal s1,s2, no le edema lungs- + scattered exp wheezing, normal resp effort on o2 nc neuro- AAOx3 Sepsis with 2 SIRS + infectious process suspected to be pna on admit, resolved- pna treatment as below, BP/HR stable off IVFs Suspected CAP, org unknown-cont levaquin, nebs, attempt to id organism Acute hypoxic resp failure 2/2 suspected pna- treatment for pna as above, nebs, supplemental 02 nc DM with hyperglycemia on steroids- hold home oral meds, increase SSI Hypophosphatemia -resolved Hypokalemia- resolved Chronic hematuria- follow up with established urology outpt CAD with PCI hx stable- though on no home meds for CAD?,cont home asa daily QT prolongation low 400s on admit and upper 400s today, asx- cont to monitor lytes, cont tele, ekg am, if prolonged further will need to change levaquin vte ppx scd given chonic hematuria <Karen Martinez - Last Filed: 06/27/18 14:53> Hospitalist Progress Note - Encounter Date of Encounter: 06/27/18 Time of Encounter: 09:40 - Subjective Interval History: Patient reports shortness of breath resolved on oxygen and cough improved. His appetite remains poor. He denies chest pain or palpations - Exam Vitals: Temp Pulse Resp BP Pulse Ox 97.5 F L 72 15 151/83 93 06/27/18 07:17 06/27/18 07:17 06/27/18 09:53 06/27/18 07:17 06/27/18 09:53 Exam: General: pleasant, in no acute distress, A&Ox3 once awoken from sleep Head: atraumatic, normocephalic, Mouth: mucous membranes moist, no mucosal lesions, no obvious caries Cardiac: RRR, no murmurs, no gallops Respiratory: diffuse wheezing with generilzed coarse breath sounds, coughing Abdomen: BSx4, Soft, not distended, no tenderness, no masses, no organomegaly Extremities: pulses intact, no pedal edema, normal ROM Psychiatric: normal mood and affect, intact memory, good judgment and insight - Assessment and Plan (1) Acute respiratory failure with hypoxia Current Visit: Yes Status: Acute Assessment and Plan: Acute respiratory failure due to PNA requiring oxygen supplementation -continue oxygen (2) Community acquired pneumonia Current Visit: Yes Status: Acute Assessment and Plan: Community acquired PNA . Meet SIRs criteria on admission of tachypnea and hypoxia but no elevation of lactic acid or leukocytosis At risk as former smoker with out history of COPD - blood cultures NGTD - sputum culture not yet obstained - urine antigens negative for legionella and strep penumo - influenza swab negative - discontinued ceftriaxone after one dose - continue levaquin d2 - continue xopenox -continue prednisone 40 mg daily 06-25-18 XR Chest mild bibasilar opacities (3) Diabetes Current Visit: No Status: Chronic Assessment and Plan: Type 2 DM, well controlled at home with last A1C of 6.7 in January 2018 but expect increased with steroid use. Hyperglycemia ranging up to 300s - increase to medium dose SSI -continue accuchecks - continue home lyrica - hold home gliperide and metformin (4) CVA (cerebral vascular accident) Current Visit: No Status: Chronic Assessment and Plan: Chronic, 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 - continue home dose asa (5) Hematuria Current Visit: No Status: Chronic Assessment and Plan: Chronic hematuria - follow up with urology out patient as planned (6) QT prolongation Current Visit: Yes Status: Acute Assessment and Plan: Overnight nursing concern for QT elongation on tele in setting of Levaquin use EKG shows QT of 403 similar to seen 418 one years ago - cautious use of Levaquin as adverse reaction to fist line agent - continue to monitor on tele - repeat EKG planned fro tomorrow morning (7) Adverse reaction to antibiotic Current Visit: Yes Status: Resolved Assessment and Plan: Skin changes with initial dose of ceftriaxone - thus discontinued and resolved. (8) Hypokalemia Current Visit: Yes Status: Acute Assessment and Plan: Resolved at 3.9 from 3.6 with supplement, goal above 4 with concern for QT elongation - continue to monitor (9) Hypophosphatemia Current Visit: Yes Status: Acute Assessment and Plan: Resolved at 2.9 after supplemented, -continue to monitor as concern for QT elongation - Time Spent with Patient Total time spent is greater than 50% in coordination of care (as documented) at patient's floor/unit and/or counseling patient: Internal Medicine: Result - Labs CBC & Chem 7: 06/27/18 04:57 06/27/18 04:57 Labs: Short CBC 06/27/18 Range/Units 04:57 WBC 7.5 (4.3-11.1) K/mcL Hgb 12.3 L (12.9-16.9) g/dL Hct 37.7 (37.5-50.1) % Plt Count 247 (140-400) K/mcL Neutrophils # 5.4 (1.6-8.9) K/mcL BMP 06/26/18 06/27/18 14:40 04:57 Sodium 133 L 136 Potassium 3.9 Chloride 102 Carbon Dioxide 27 BUN 13 Creatinine 0.72 Glucose 345 H Calcium 8.8 - ABG Interpretation ABG results: PT/INR, D-dimer PT 13.8 Seconds (9.4-12.1) H 06/25/18 18:41 <Karen Martinez M - Last Filed: 06/27/18 14:53> (2) Community acquired pneumonia Qualifiers: Laterality: unspecified laterality Qualified Code(s): J18.9 - Pneumonia, unspecified organism (3) Diabetes Qualifiers: Diabetes mellitus type: type 2 Diabetes mellitus correction insulin use: witho ut correction use Diabetes mellitus complication status: without complication Qualified Code(s): E11.9 - Type 2 diabetes mellitus without complications (4) CVA (cerebral vascular accident) Qualifiers: CVA mechanism: unspecified Qualified Code(s): I63.9 - Cerebral infarction, unspecified (5) Hematuria Qualifiers: Hematuria type: unspecified type Qualified Code(s): R31.9 - Hematuria, unspecified
--- NOTE | 2018-06-27 17:22 | Electrocardiograph Report ---
[place] [id number] Test Date: 2018-06-27 Pat Name: Anand Mendez Department: 111 Room: [id number] Gender: M Narrative Writer: [id number] : [id number] Requested By: Richard Holman Order Number: [id number] Reading MD: Shireen Monet Measurements Intervals Fidelity Rate: 63 P: 63 WA: 170 QRS: -1 QRSD: 126 T: 2 QT: 471 QTc: 478 Interpretive Statements SINUS RHYTHM RIGHT BUNDLE BRANCH BLOCK Electronically Signed On 06-27-2018 17:20:14 EDT by Shieren Monet
[2018-06-27] MEDS ORDERED: Insulin LISPRO 300 UNITS/3 ML VIAL SQ SCH (21:00)
[2018-06-28] MEDS: Levalbuterol Neb 0.63 MG/3 ML IH SCH ×4 (03:46→22:31)
[2018-06-28 06:56] LABS: Hematocrit 37.2 % (37.5-50.1); Hemoglobin 12.5 g/dL (12.9-16.9); Mean Corpuscular HGB Conc 33.6 g/dL (31.6-35.5); Mean Corpuscular Hemoglobin 29.3 pg (28.0-33.3); Mean Corpuscular Volume 87.1 fL (83.0-100.0); Mean Platelet Volume 10.6 fL (9.4-12.4); Platelet Count 294 K/mcL (140-400); Red Blood Count 4.27 M/mcL (4.19-5.50); Red Cell Distribution Width 13.2 % (11.5-14.5)
[2018-06-28 07:19] LABS: BUN/Creatinine Ratio 22 (6-26); Blood Urea Nitrogen 16 mg/dL (8-23); Calcium 8.9 mg/dL (8.6-10.3); Carbon Dioxide 26 mEq/L (23-29); Chloride 103 mEq/L (98-107); Glucose 338 mg/dL (70-105); Osmolality,Calculated 294 (280-300); Potassium 3.7 mEq/L (3.5-5.1); Sodium 135 mEq/L (136-145); eGFR For Non-African Americans > 60 (> 60)
[2018-06-28 07:23] LABS: Lymphocytes # 2.4 K/mcL (0.6-4.6); Monocytes # 0.9 K/mcL (0.0-1.3); Neutrophils # 5.8 K/mcL (1.6-8.9)
[2018-06-28 07:24] LABS: Platelet Estimate Normal (Normal); Reactive Lymphocytes Present (Not Present)
--- NOTE | 2018-06-28 08:08 | Internal Med Progress Note ---
<Stephie Santiago - Last Filed: 06/28/18 12:53> Hospitalist Progress Note - Encounter Date of Encounter: 06/28/18 - Exam Vitals: Temp Pulse Resp BP Pulse Ox 97.6 F 62 16 139/87 96 06/28/18 06:58 06/28/18 06:58 06/28/18 06:58 06/28/18 06:58 06/28/18 06:58 - Time Spent with Patient Total time spent is greater than 50% in coordination of care (as documented) at patient's floor/unit and/or counseling patient: Internal Medicine: Result - Labs CBC & Chem 7: 06/28/18 06:20 06/28/18 06:20 Labs: Short CBC 06/28/18 Range/Units 06:20 WBC 9.1 (4.3-11.1) K/mcL Hgb 12.5 L (12.9-16.9) g/dL Hct 37.2 L (37.5-50.1) % Plt Count 294 (140-400) K/mcL Neutrophils # 5.8 (1.6-8.9) K/mcL BMP 06/28/18 06:20 Sodium 135 L Potassium 3.7 Chloride 103 Carbon Dioxide 26 BUN 16 Creatinine 0.73 Glucose 338 H Calcium 8.9 - ABG Interpretation ABG results: PT/INR, D-dimer PT 13.8 Seconds (9.4-12.1) H 06/25/18 18:41 Consult Discharge Plan - Plan Referrals: Monique Oseguera MD [Primary Care Provider] - - Attending Attestation I examined this patient and my medical decision-making was reviewed with the Resident Physician Dr Martinez. I agree with the documented findings, disposition and treatment plan as described except to the extent set forth below. Mr Mendez is being observed CAP and acute hypoxic resp failure awake, sob stable on o2 and beginning to wean, + cough, no sputum, no fevers or chills gen- alert, awake,appears stated age cv- reg rate and rhythm, normal s1,s2, no le edema lungs- ctabl normal resp effort on o2 nc neuro- AAOx3 Sepsis with 2 SIRS + infectious process suspected to be pna on admit, resolved- pna treatment as below Suspected CAP, org unknown-cont levaquin, nebs Acute hypoxic resp failure 2/2 suspected pna-weaning o2, nebs, tx as above DM with hyperglycemia on steroids- hold home oral meds, begin basal insulin + SSI Chronic hematuria- follow up with established urology outpt QT prolongation low 400s on admit and upper 400s- now down trending, cont to monitor lytes, cont tele, while on levaquin further dx and plan as noted by resident <Karen Martinez - Last Filed: 06/28/18 14:54> Hospitalist Progress Note - Encounter Date of Encounter: 06/28/18 Time of Encounter: 08:00 - Subjective Interval History: Patient report cough with increased production and continued shortness of breath with out significant improvement.Denies chest pain, palpitations or fatigue. Over night patient was noted to be hyperglycemia at 386 but no new orders i ncreased sliding scales earlier by day team. - Exam Vitals: Temp Pulse Resp BP Pulse Ox 97.6 F 62 16 139/87 96 06/28/18 06:58 06/28/18 06:58 06/28/18 06:58 06/28/18 06:58 06/28/18 06:58 Exam: General: pleasant, in no acute distress, A&Ox3 once awoken from sleep Head: atraumatic, normocephalic, Mouth: mucous membranes moist, no mucosal lesions, no obvious caries Cardiac: RRR, no murmurs, no gallops Respiratory: decreased breath sounds on lower lobes, coughing , no wheeze or rales Abdomen: BSx4, Soft, not distended, no tenderness, no masses, no organomegaly Extremities: pulses intact, no pedal edema, normal ROM Psychiatric: normal mood and affect, intact memory, good judgment and insight - Assessment and Plan (1) Acute respiratory failure with hypoxia Current Visit: Yes Status: Acute Assessment and Plan: Acute respiratory failure due to PNA requiring oxygen supplementation. -continue oxygen (2) Community acquired pneumonia Current Visit: Yes Status: Acute Assessment and Plan: Community acquired PNA with bilateral laterality Treatment includes steriods given smoking history with out established diagnosis of COPD - blood cultures NGTD - sputum culture still not yet obtained but cough now productive - urine antigens negative for legionella and strep penumo - influenza swab negative - discontinued ceftriaxone after one dose duet o allergic reaction as docu metnated below - continue levaquin d3 - continue xopenox -continue prednisone 40 mg daily 06-25-18 XR Chest mild bibasilar opacities (3) QT prolongation Current Visit: Yes Status: Suspected Assessment and Plan: Reassurance for concern for QT elongation on levaquin - repeat EKG this morniang stable from previous with QT interval of 438 similar to 403 on admit and 423 last year - continue cardiac monitoring (4) Diabetes Current Visit: No Status: Chronic Assessment and Plan: DM type 2 with hyperglycemia near 400 in part due to oral steroids with increased to moderate SSI yesterday Well controlled at home with last A1C of 6.7 in January 2018 - start basal 8 units bid -continue medium dose SSI -continue accuchecks - continue home lyrica - hold home gliperide and metformin - repeat H 1ac (5) CVA (cerebral vascular accident) Current Visit: No Status: Chronic Assessment and Plan: Chronic, 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 - continue home dose asa - up to chair tid - refer to PCP if to start statin out patient (6) Hematuria Current Visit: No Status: Chronic Assessment and Plan: Chronic hematuria with small blood and high protien on UA at admit - follow up with urology out patient as planned (7) Adverse reaction to antibiotic Current Visit: Yes Status: Resolved Assessment and Plan: Rash from ceftriaxone resolved- possible cephalosporins allergic reaction - azithromycin not infused - allergy list changed (8) Hypokalemia Current Visit: Yes Status: Acute Assessment and Plan: K 3.7 with goal above 4 due to concern fro QT elongation - given 40 meq oral today - continue to monitor (9) Hypophosphatemia Current Visit: Yes Status: Acute Assessment and Plan: Last P 2.9 on Wednesday, low on admit at 2.0 and replaced - monitor with morning labs (10) Sepsis Current Visit: Yes Status: Resolved Assessment and Plan: Two SIRs requirements of tachypnea and hypoxia with likely source PNA - now improved. Lactic acid on presentation 1.4 DVT Prophylaxis: scds given hematuria - Summary of Assessment and Plan Summary of Assessment and Plan: Continue inpatient treatment of PNA as patient still requiring oxygen supplement due to increased risk with age and smoking history . Anticipate possible discharge on oral antibiotics later this week - Time Spent with Patient Total time spent is greater than 50% in coordination of care (as documented) at patient's floor/unit and/or counseling patient: Internal Medicine: Result - Labs CBC & Chem 7: 06/28/18 06:20 06/28/18 06:20 Labs: Short CBC 06/28/18 Range/Units 06:20 WBC 9.1 (4.3-11.1) K/mcL Hgb 12.5 L (12.9-16.9) g/dL Hct 37.2 L (37.5-50.1) % Plt Count 294 (140-400) K/mcL Neutrophils # 5.8 (1.6-8.9) K/mcL BMP 06/28/18 06:20 Sodium 135 L Potassium 3.7 Chloride 103 Carbon Dioxide 26 BUN 16 Creatinine 0.73 Glucose 338 H Calcium 8.9 - ABG Interpretation ABG results: PT/INR, D-dimer PT 13.8 Seconds (9.4-12.1) H 06/25/18 18:41 <Karen Martinez M - Last Filed: 06/28/18 14:54> (2) Community acquired pneumonia Qualifiers: Laterality: unspecified laterality Qualified Code(s): J18.9 - Pneumonia, unspecified organism (4) Diabetes Qualifiers: Diabetes mellitus type: type 2 Diabetes mellitus intermediate manager insulin use: without residential use Diabetes mellitus complication status: without complication Qualified Code(s): E11.9 - Type 2 diabetes mellitus without complications (5) CVA (cerebral vascular accident) Qualifiers: CVA mechanism: unspecified Qualified Code(s): I63.9 - Cerebral infarction, unspecified (6) Hematuria Qualifiers: Hematuria type: unspecified type Qualified Code(s): R31.9 - Hematuria, unspecified (10) Sepsis Qualifiers: Sepsis type: sepsis due to unspecified organism Qualified Code(s): A41.9 - S epsis, unspecified organism
[2018-06-28] MEDS: Aspirin Enteric Coated 325 MG Tablet PO SCH (08:57)
[2018-06-28] MEDS: Pregabalin 50 MG CAPSULE PO SCH ×2 (08:57→20:45)
[2018-06-28] MEDS: Insulin LISPRO 300 UNITS/3 ML VIAL SQ SCH ×3 (08:58→17:07)
[2018-06-28] MEDS: predniSONE 20 MG TABLET PO SCH (08:58)
[2018-06-28] MEDS: Levofloxacin 750 MG/150 ML 750 MG/150 ML BAG IVPB SCH (08:58)
[2018-06-28] MEDS ORDERED: D5% in Water 1,000 ML IVC PRN (10:21)
[2018-06-28] MEDS ORDERED: Dextrose Gel 15 GM/37.5 ML TUBE PO PRN (10:21)
[2018-06-28] MEDS ORDERED: *HR* Dextrose 50 % in Water (Syg) 50 ML SYRINGE IVP PRN (10:21)
[2018-06-28] MEDS: Cyanocobalamin (B-12) 1,000 MCG TABLET PO SCH (11:12)
[2018-06-28] MEDS: Insulin DETEMIR 100 UNIT/ML X5UNITS SQ SCH ×2 (12:06→20:47)
--- NOTE | 2018-06-28 16:26 | Electrocardiograph Report ---
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
[2018-06-29] MEDS: Levalbuterol Neb 0.63 MG/3 ML IH SCH ×4 (03:47→22:17)
[2018-06-29 07:30] LABS: Hematocrit 39.4 % (37.5-50.1); Hemoglobin 12.8 g/dL (12.9-16.9); Mean Corpuscular HGB Conc 32.5 g/dL (31.6-35.5); Mean Corpuscular Volume 89.3 fL (83.0-100.0); Mean Platelet Volume 10.4 fL (9.4-12.4); Platelet Count 349 K/mcL (140-400); Red Blood Count 4.41 M/mcL (4.19-5.50); Red Cell Distribution Width 13.1 % (11.5-14.5)
[2018-06-29 07:31] LABS: Magnesium 1.8 mg/dL (1.6-2.6); Phosphorous 3.1 mg/dL (2.7-4.5)
[2018-06-29 07:32] LABS: BUN/Creatinine Ratio 21 (6-26); Blood Urea Nitrogen 19 mg/dL (8-23); Carbon Dioxide 29 mEq/L (23-29); Chloride 102 mEq/L (98-107); Glucose 348 mg/dL (70-105); Osmolality,Calculated 294 (280-300); Potassium 3.9 mEq/L (3.5-5.1); Sodium 134 mEq/L (136-145); eGFR For Non-African Americans > 60 (> 60)
[2018-06-29] MEDS: Pregabalin 50 MG CAPSULE PO SCH ×2 (08:05→20:08)
[2018-06-29] MEDS: levoFLOXacin 750 MG TABLET PO SCH (08:05)
[2018-06-29] MEDS: Aspirin Enteric Coated 325 MG Tablet PO SCH (08:05)
[2018-06-29] MEDS: Cyanocobalamin (B-12) 1,000 MCG TABLET PO SCH (08:05)
[2018-06-29] MEDS: predniSONE 20 MG TABLET PO SCH (08:06)
[2018-06-29] MEDS: Insulin LISPRO 300 UNITS/3 ML VIAL SQ SCH ×3 (08:07→16:30)
[2018-06-29] MEDS: Insulin DETEMIR 100 UNIT/ML X5UNITS SQ SCH ×2 (08:08→20:08)
[2018-06-29 08:55] LABS: Lymphocytes # 2.5 K/mcL (0.6-4.6); Monocytes # 0.6 K/mcL (0.0-1.3); Neutrophils # 7.2 K/mcL (1.6-8.9)
[2018-06-29 08:56] LABS: Platelet Estimate Normal (Normal)
--- NOTE | 2018-06-29 10:28 | Internal Med Progress Note ---
<Tyrone Jaquez - Last Filed: 06/29/18 16:32> Hospitalist Progress Note - Encounter Date of Encounter: 06/29/18 - Exam Vitals: Temp Pulse Resp BP Pulse Ox 98.2 F 70 18 130/87 93 06/29/18 15:53 06/29/18 15:53 06/29/18 15:53 06/29/18 15:53 06/29/18 15:53 - Assessment and Plan (1) Acute respiratory failure with hypoxia Current Visit: Yes Status: Acute (2) Pneumonia Current Visit: Yes Status: Suspected (3) Hypokalemia Current Visit: Yes Status: Resolved (4) Hypophosphatemia Current Visit: Yes Status: Resolved (5) Sepsis Current Visit: Yes Status: Resolved (6) Diabetes Current Visit: No Status: Chronic (7) Steroid-induced hyperglycemia Current Visit: Yes Status: Acute - Time Spent with Patient Total time spent is greater than 50% in coordination of care (as documented) at patient's floor/unit and/or counseling patient: Internal Medicine: Result - Labs CBC & Chem 7: 06/29/18 06:15 06/29/18 06:15 Labs: Short CBC 06/29/18 Range/Units 06:15 WBC 10.3 (4.3-11.1) K/mcL Hgb 12.8 L (12.9-16.9) g/dL Hct 39.4 (37.5-50.1) % Plt Count 349 (140-400) K/mcL Neutrophils # 7.2 (1.6-8.9) K/mcL BMP 06/29/18 06:15 Sodium 134 L Potassium 3.9 Chloride 102 Carbon Dioxide 29 BUN 19 Creatinine 0.90 Glucose 348 H Calcium 9.0 - ABG Interpretation ABG results: PT/INR, D-dimer PT 13.8 Seconds (9.4-12.1) H 06/25/18 18:41 Consult Discharge Plan - Plan Referrals: Monique Oseguera MD [Primary Care Provider] - - Attending Attestation The history, physical exam, and medical decision making was performed by the medical student either while I was physically present and actively involved or I personally re-performed the exam and medical decision making. I have verified the accuracy of the medical student's documentation with regards to the history, physical exam findings, and medical decision making on 3/27/19. Mr Mendez is currently admitted for acute resp failure related to pneumonia. He remains moderate to high risk due to potential for worsening clinical status. Mr Mendez feels he is breathing better. No CP. No fever or chills. Blood sugar has been elevated most likely from steroids. He is worried about his ill at home. No GI issues. Exam alert Pleasant. Comfortable Normocephalic Mucus membranes dry Neck supple Heart reg and not tachy. No murmur heard. Lungs with bilateral wheeze. Rhonchi on L anterior Abd soft and nontender Moves all extremities No rash No edema. Pulses palpable I/P 1. Acute hypoxic resp failure - still requiring 3 liter NC. Not on home oxygen. Will attempt to wean but may need at home for time. 2. Pneumonia - CAP. Continue abx. Levaquin 3. DM with hyper glycemia due to steroids - insulin increased 4. sepsis resolved 5. Hypokalemia, 6. hypophosphatemia Further diagnoses and plan as above. Pt remains at risk for worsening respiratory status. <Sharla Linder - Last Filed: 06/29/18 19:11> Hospitalist Progress Note - Encounter Date of Encounter: 06/29/18 Time of Encounter: 09:00 - Subjective Interval History: Mr. Mendez is a 77Yo M with a h/o CAD, stent placement X2, and DM who initially presented with increasing SOB with exertion as well as chest pain and productive cough which worsened over several days before admission. Today patient feels much better and feels like he back to feeling at his normal baseline. He denies fever, chills, fatigue, H/A, chest pain, palpitations, hemoptysis, dyspnea, cough with clear sputum production, pt is afebrile without leukocytosis. Pt denies NVD, constipation and reports a good appetite. Pt states he is ready to go home. - Exam Vitals: Temp Pulse Resp BP Pulse Ox 98.1 F 60 19 132/91 92 06/29/18 06:52 06/29/18 06:52 06/29/18 06:52 06/29/18 06:52 06/29/18 06:52 Exam: General: AAOX3, NAD, WDWN HEENT: minimal blood noted in b/l nostrils 2/2 O2 administered via nasal cannula Cardiovascular: RRR, normal S1 and s2, no JVD, no murmurs Respiratory: b/l expiratory wheezing, left upper lobe rhonchi, currently on O2 Abdomen: normal bowel sounds X4, no rebound tenderness, no tenderness to palpation Ext: right great toe tenderness, mild bruising proximal to the right great toe cuticle - Assessment and Plan (1) Acute respiratory failure with hypoxia Current Visit: Yes Status: Acute Assessment and Plan: Acute respiratory failure due to PNA requiring oxygen supplementation. Pt currently not on home O2. Pt SaO2 today ranging from 91-96, pt is currently on 3L O2 nasal cannula Pt RR today has ranged from 18-22 Tx: -continue oxygen, attempt to wean -Start using incentive spirometry -O2 qualification 6 min walk ordered (2) Community acquired pneumonia Current Visit: Yes Status: Acute Assessment and Plan: Pt SaO2 today ranging from 91-96, pt is currently on 3L O2 nasal cannula Pt RR today has ranged from 18-22 06/25/18 CXR showed Mild bibasilar opacities, which are favored to represent atelectasis. urine antigens negative for legionella and strep penumo influenza swab negative Blood cx pending Tx: -continue oxygen, attempt to wean -Sputum cx ordered -Start using incentive spirometry -Continue levaquin day 4 -continue xopenox -continue prednisone 40 mg daily (3) QT prolongation Current Visit: Yes Status: Suspected Assessment and Plan: Reassurance for concern for QT elongation d/t taking levaquin EKG on 06/27 showed QT of 471 Repeat EKG on 06/28 stable with QT interval of 438 similar to 403 on admit and 423 last year Tx: - continue cardiac monitoring (4) CVA (cerebral vascular accident) Current Visit: No Status: Chronic Assessment and Plan: Pt has a history of CVA with resultant right upper extremity hand weakness Pt AAOX3, no neurological deficits or changes in mentation Tx: - continue home dose ASA - pt to be up to the chair 3X day - refer to PCP if to start a statin outpatient (5) Gross hematuria Current Visit: No Status: Acute Assessment and Plan: Chronic hematuria with small blood and high protien on UA at admission, gladys green follows up with a urologist Tx: -follow up with urology out patient as planned (6) T2DM (type 2 diabetes mellitus) Current Visit: No Status: Chronic Assessment and Plan: DM type 2 with hyperglycemia with glucose at 348 today in part d/t oral steroids vs infection Glucose yesterday was 338 Glucose Well controlled at home with last A1C of 6.7 in January 2018, pt states his glucose typically runs in the 140s-150s Hgb A1c today was 8.6 Tx: - insulin lispro increased to high dose regimen -continue basal insulin 8 units bid -continue lyrica (home med) -Continue accuchecks -home gliperide and metformin are being held (7) Hypophosphatemia Current Visit: Yes Status: Resolved Assessment and Plan: Phosphate on admission was 2.0 Phosphate on 06/27 was 2.9, phosphate today was 3.1 Tx: -phosphate was repleted with sodium phosphate on 06/26 -continue to monitor with morning labs (8) Adverse reaction to antibiotic Current Visit: Yes Status: Resolved Assessment and Plan: Pt was initially given rocephin on 06/25 but was d/c due to skin changes (rash), this resolved after rocephin was d/c possible cephalosporin allergic reaction azithromycin was not infused allergy list was updated (9) Hypokalemia Current Visit: Yes Status: Resolved Assessment and Plan: Potassium yesterday was 3.7, today it is 3.9, goal potassium is above 4 due to concern for QT elongation Tx: - 40 meq of KCl was given on 06/28 - continue to monitor potassium (10) Sepsis Current Visit: Yes Status: Resolved Assessment and Plan: Pt no longer meets SIRS criteria WBC 10.3 Pulse 60-73 BP 132-146/71-91 RR 18-22 Temp 97.8-98.2 Blood cx pending Tx: -continue Levaquin day 4 (11) DVT prophylaxis Current Visit: No Status: Acute Assessment and Plan: Pt given SCDs and not heparin SQ d/t hematuria - Time Spent with Patient Total time spent is greater than 50% in coordination of care (as documented) at patient's floor/unit and/or counseling patient: Internal Medicine: Result - Labs CBC & Chem 7: 06/29/18 06:15 06/29/18 06:15 Labs: Short CBC 06/29/18 Range/Units 06:15 WBC 10.3 (4.3-11.1) K/mcL Hgb 12.8 L (12.9-16.9) g/dL Hct 39.4 (37.5-50.1) % Plt Count 349 (140-400) K/mcL Neutrophils # 7.2 (1.6-8.9) K/mcL BMP 06/29/18 06:15 Sodium 134 L Potassium 3.9 Chloride 102 Carbon Dioxide 29 BUN 19 Creatinine 0.90 Glucose 348 H Calcium 9.0 - ABG Interpretation ABG results: PT/INR, D-dimer PT 13.8 Seconds (9.4-12.1) H 06/25/18 18:41 <Tyrone Jaquez A - Last Filed: 06/29/18 16:32> (2) Pneumonia Qualifiers: Pneumonia type: due to Pneumococcus Laterality: bilateral Lung location: lower lobe of lung Qualified Code(s): J13 - Pneumonia due to Streptococcus pneumoniae (5) Sepsis Qualifiers: Sepsis type: sepsis due to unspecified organism Qualified Code(s): A41.9 - Sepsis, unspecified organism (6) Diabetes Qualifiers: Diabetes mellitus type: type 2 Diabetes mellitus chcf insulin use: [facility] chcf use Diabetes mellitus complication status: with hyperglycemia Qualified Code(s): E11.65 - Type 2 diabetes mellitus with hyperglycemia <Sharla Linder M - Last Filed: 06/29/18 19:11> (2) Community acquired pneumonia Qualifiers: Laterality: unspecified laterality Qualified Code(s): J18.9 - Pneumonia, unspecified organism (4) CVA (cerebral vascular accident) Qualifiers: CVA mechanism: unspecified Qualified Code(s): I63.9 - Cerebral infarction, unspecified (6) T2DM (type 2 diabetes mellitus) Qualifiers: Diabetes mellitus clinical supervisor insulin use: without chcf use Diabetes mellitus complication status: without complication Qualified Code(s): E11.9 - Type 2 diabetes mellitus without complications (10) Sepsis Qualifiers: Sepsis type: sepsis due to unspecified organism Qualified Code(s): A41.9 - Sepsis, unspecified organism
[2018-06-29] MEDS ORDERED: Insulin LISPRO 300 UNITS/3 ML VIAL SQ SCH ×2 (11:10→22:30)
[2018-06-29 13:46] LABS: Estimated Average Glucose 200 mg/dl; Hemoglobin A1C 8.6 %
--- NOTE | 2018-06-29 17:32 | Electrocardiograph Report ---
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
[2018-06-30] MEDS: Levalbuterol Neb 0.63 MG/3 ML IH SCH ×2 (03:50→10:35)
[2018-06-30 06:00] LABS: Hematocrit 40.1 % (37.5-50.1); Hemoglobin 13.1 g/dL (12.9-16.9); Mean Corpuscular HGB Conc 32.7 g/dL (31.6-35.5); Mean Corpuscular Hemoglobin 28.9 pg (28.0-33.3); Mean Corpuscular Volume 88.3 fL (83.0-100.0); Mean Platelet Volume 10.1 fL (9.4-12.4); Nucleated Red Blood Cells 0.3 /100 WBC (0); Platelet Count 381 K/mcL (140-400); Red Blood Count 4.54 M/mcL (4.19-5.50)
[2018-06-30 06:23] LABS: Eosinophils # 0.2 K/mcL (0.0-0.6); Lymphocytes # 2.7 K/mcL (0.6-4.6); Monocytes # 1.3 K/mcL (0.0-1.3); Neutrophils # 6.9 K/mcL (1.6-8.9); Platelet Estimate Normal (Normal)
[2018-06-30 06:24] LABS: BUN/Creatinine Ratio 23 (6-26); Blood Urea Nitrogen 18 mg/dL (8-23); Calcium 8.8 mg/dL (8.6-10.3); Carbon Dioxide 26 mEq/L (23-29); Chloride 102 mEq/L (98-107); Glucose 297 mg/dL (70-105); Osmolality,Calculated 295 (280-300); Potassium 3.8 mEq/L (3.5-5.1); Sodium 136 mEq/L (136-145); eGFR For Non-African Americans > 60 (> 60)
--- NOTE | 2018-06-30 06:35 | Event Note ---
Date of Encounter: 06/30/18 Time of Encounter: 06:15 Notified by nursing at 0548 that EKG interpreted as Atrial Fibrilation RBBB, however on my assessment p waves were noted with 2 premature beats present. Rate 64 QRS 123 QT 439.
--- NOTE | 2018-06-30 08:45 | Discharge Summary ---
<Karen Martinez - Last Filed: 06/30/18 12:41> - NOTES TO OUTPATIENT PROVIDER Notes to Outpatient Provider: Follow up with PCP for DM with hyperglycemia on short burst of steriods. Possible COPD and needs follow up chest xr. Follow up with urology regarding hematuria Orders not resulted at time of discharge: Pending orders 06/25/18 18:41 Culture,Blood [BC] Stat 06/26/18 07:58 Sputum Culture [Culture,Sputum with Gram Stain] [RM] Stat Date of Encounter: 06/30/18 Time of Encounter: 08:45 - Discharge Diagnosis (1) Acute respiratory failure with hypoxia Priority: Primary Status: Acute (2) Community acquired pneumonia Priority: Secondary Status: Acute Qualifiers: Laterality: unspecified laterality Qualified Code(s): J18.9 - Pneumonia, unspecified organism (3) QT prolongation Priority: Secondary Status: Ruled-out (4) Diabetes Priority: Secondary Status: Chronic Qualifiers: Diabetes mellitus type: type 2 Diabetes mellitus mcc insulin use: without mcc use Diabetes mellitus complication status: with hyperglycemia Qualified Code(s): E11.65 - Type 2 diabetes mellitus with hyperglycemia (5) CVA (cerebral vascular accident) Priority: Secondary Status: Chronic Qualifiers: CVA mechanism: unspecified Qualified Code(s): I63.9 - Cerebral infarction, unspecified (6) Hematuria Priority: Secondary Status: Chronic Qualifiers: Hematuria type: unspecified type Qualified Code(s): R31.9 - Hematuria, unspecified (7) Adverse reaction to antibiotic Priority: Secondary Status: Resolved (8) Hypokalemia Priority: Secondary Status: Resolved (9) Hypophosphatemia Priority: Secondary Status: Resolved (10) Sepsis Priority: Secondary Status: Resolved Qualifiers: Sepsis type: sepsis due to unspecified organism Qualified Code(s): A41.9 - Sepsis, unspecified organism Hospital course: Mr. Mendez is a 77 year old male hx of DM and CVA with deficits presented for cough and shortness of breath on 06-25-18. History of fevers, malaise and coughi ng until vomit resulting in bed bound and poor oral intake. In ED, afebrile but tachpenic with oxygen 93% on 3L . Respiatory sounds of impressive rhonchi and rales. Chest XR showed bibasilar opacities . he reported chest pain with coughing but troponin negative and EKG stable . Mild hyponatramia at 134 and hyperglyemia 184, and hypokalemia 3.3. Patient was started on IV azithromycin and levaquine but developed rash possible allergic reaction thus it was stoped and started on levaquin. Concern for sepsis as requiring 4 l of oxygen. Urine antigens negative for strep pnuemo and legionella. Influenza negative . No growth on blood cultures . PMHX of DM CAD, GERD and hematuria follows with urology . Patient was hyperglyemia during admission to peak of 348 likely due to prednisone 40 mg daily but A1C of 8.6 thus insulin increased as home orals held. There was nursing concern for QT elongation on tele thus repeat EKG while on levaquin with QT of [id number] on admit and 423 last year -Night of 3-28 RN reported A fib on EKG but review of EKG showed PAC with return to NSR. Potassium repeated for mild hypokalemia as goal above 4 due to arrhythmia concern. Asymptomatic as patient states chest pain resolved and denied palpitations, dizziness or syncope. On day of discharge mild hyponatremia resolved 136 and hypokalemia 3.8. He reports shortness of breath resolved with mild morning cough. On exam crackles in lung bases greatly improved from earlier in admission. Patient did not qualify for oxygen thus walk test. Patient insisted on driging himself home. I educated him on risk of hypoxia and syncope - he inists on driving and acknowledge that he is driving against medical advise and should be homebound unless driven by family member. Discharge discussed with: patient, nurse - Time Spent with Patient Total time spent providing and/or coordinating discharge services: - Discharge Medications Prescriptions: New Levalbuterol [Xopenex INH] 1 puff IH PRN PRN #1 inhaler PRN Reason: Shortness Of Breath/Wheezing levoFLOXacin [Levaquin] 750 mg PO DAILY 1 Days #1 tablet Continue Glimepiride [Amaryl] 4 mg PO BID Cyanocobalamin (Vitamin B-12) [Vitamin B-12] 1,000 mcg PO DAILY Metformin HCl 500 mg PO BID Aspirin 325 mg PO DAILY Pregabalin [Lyrica] 100 mg PO BID Home Medications: Glimepiride [Amaryl] 4 mg PO BID 10/05/17 [History] Cyanocobalamin (Vitamin B-12) [Vitamin B-12] 1,000 mcg PO DAILY 01/23/18 [History] Metformin HCl 500 mg PO BID 01/23/18 [History] Aspirin 325 mg PO DAILY 06/26/18 [History] Pregabalin [Lyrica] 100 mg PO BID 06/26/18 [History] Levalbuterol [Xopenex INH] 1 puff IH PRN PRN #1 inhaler 06/30/18 [Rx] levoFLOXacin [Levaquin] 750 mg PO DAILY 1 Days #1 tablet 06/30/18 [Rx] Allergies/Adverse Reactions: Allergy/AdvReac Type Severity Reaction Status Date / Time ceftriaxone Allergy Rash Verified 06/28/18 14:33 azithromycin AdvReac Hives Verified 06/26/18 13:59 Date of admission: 06/27/18 12:31 Primary care physician: Monique Oseguera MD Consults: 06/27/18 15:16 Consult to Occupational Therapy [CONS] Routine Comment: Evaluate, develop and implement POC Reason for Consult: Per nursing, patient is a 2 person assist and states has frequent falls at home. 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 Does patient have active BEDREST order?: No Is patient medically & hemodynamically stable?: Yes 06/28/18 08:58 Consult to Nurse Navigator [CONS] Routine Comment: Pneumonia Discharging clinician: Karen Martinez Anticipated date of discharge: 06/30/18 - Constitutional Vitals: Temp Pulse Resp BP Pulse Ox 98.4 F 60 16 143/88 92 06/30/18 07:11 06/30/18 07:11 06/30/18 07:11 06/30/18 07:11 06/30/18 07:11 General appearance: Present: cooperative, A&O X 3, pleasant, no acute distress, answers questions appropriately Exam: Patient sitting comfortable in bed wearing NC and eating breakfast - Head Head exam: Present: atraumatic, normal inspection, normocephalic - ENT ENT exam: Present: mucous membranes moist, normal external ear exam, normal oropharynx - Respiratory Respiratory exam: Present: decreased breath sounds (and crackles in bilat lung bases). Absent: respiratory distress, wheezes, tachypnea - Cardiovascular Cardiovascular exam: Present: RRR. Absent: diastolic murmur, systolic murmur - GI/Abdominal GI/Abdominal exam: Present: normal bowel sounds, soft. Absent: mass, tenderness - Extremities Exam Extremities exam: Present: full ROM, warm, radial pulses palpable and symmetrical. Absent: pedal edema, tenderness - Back Exam Back exam: Present: full ROM, normal inspection. Absent: rash noted, tenderness - Neurological Exam Neurological exam: Present: alert, oriented X3, no focal deficits. Absent: spee ch deficit - Psychiatric Psychiatric exam: Present: normal affect, normal mood - Skin Skin exam: Present: normal color. Absent: diaphoretic, rash - Patient Status Disposition: Home Health Service Condition: Fair Functional capacity at discharge: independent ambulation Overall status at discharge: patient is progressing back to baseline - Discharge Instructions Instructions: Levofloxacin (By mouth), Levalbuterol (By breathing), Acute Respiratory Distress Syndrome (DC), Diabetes Mellitus Type 2 in Adults (DC), Sepsis (DC), Pneumonia (DC) Follow Up With: Monique Oseguera MD [Primary Care Provider] - 07/07/18 10:00 am - Diet and Activity Activity: as per physical therapy Diet: diabetic diet <Tyrone Jaquez - Last Filed: 06/30/18 17:07> Orders not resulted at time of discharge: Pending orders 06/25/18 18:41 Culture,Blood [BC] Stat 06/26/18 07:58 Sputum Culture [Culture,Sputum with Gram Stain] [RM] Stat Date of Encounter: 06/30/18 - Discharge Diagnosis (1) Acute respiratory failure with hypoxia Status: Acute (2) Pneumonia Priority: Secondary Status: Suspected Qualifiers: Pneumonia type: due to Pneumococcus Laterality: bilateral Lung location: lower lobe of lung Qualified Code(s): J13 - Pneumonia due to Streptococcus pneumoniae (3) Hypokalemia Status: Resolved (4) Hypophosphatemia Status: Resolved (5) Sepsis Status: Resolved Qualifiers: Sepsis type: sepsis due to unspecified organism Qualified Code(s): A41.9 - Sepsis, unspecified organism (6) Diabetes Status: Chronic Qualifiers: Diabetes mellitus type: type 2 Diabetes mellitus mcc insulin use: without long term acute care registered nurse use Diabetes mellitus complication status: with hyperglycemia Qualified Code(s): E11.65 - Type 2 diabetes mellitus with hyperglycemia (7) Steroid-induced hyperglycemia Priority: Secondary Status: Acute Hospital course: Mr. 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 Does patient have active BEDREST order?: No Is patient medically & hemodynamically stable?: Yes 06/28/18 08:58 Consult to Nurse Navigator [CONS] Routine Comment: Pneumonia - Constitutional Vitals: Temp Pulse Resp BP Pulse Ox 97.9 F 79 18 122/78 92 06/30/18 11:11 06/30/18 11:11 06/30/18 11:11 06/30/18 11:11 06/30/18 11:11 - Attending Attestation I examined this patient and my medical decision-making was reviewed with the Resident Physician on 06/30/18. I agree with the documented findings, disposition and treatment plan as described except to the extent set forth below. Mr Mendez has been admitted for acute hypoxic resp failure due to pneumonia. He has been treated with oxygen, steroids and abx with improvement. He does not require oxygen at discharge. He is now afebrile and ready for discharge home. Exam alert Comfortable Mucus membranes dry Heart reg and not tachy Lungs clear at this time Abd soft No edema Plan D/C home today with [facility].
[2018-06-30] MEDS: Aspirin Enteric Coated 325 MG Tablet PO SCH (09:19)
[2018-06-30] MEDS: predniSONE 20 MG TABLET PO SCH (09:19)
[2018-06-30] MEDS: Pregabalin 50 MG CAPSULE PO SCH (09:19)
[2018-06-30] MEDS: levoFLOXacin 750 MG TABLET PO SCH (09:19)
[2018-06-30] MEDS: Cyanocobalamin (B-12) 1,000 MCG TABLET PO SCH (09:19)
[2018-06-30] MEDS: Insulin LISPRO 300 UNITS/3 ML VIAL SQ SCH ×2 (09:20→13:21)
--- NOTE | 2018-06-30 09:21 | Physician Discharge Referral ---
Home Health/Hosp Referral Info Transfer to: Home Health Provider in Charge Post Discharge: PCP - Diagnosis (1) Acute respiratory failure with hypoxia Priority: Primary Status: Acute (2) Community acquired pneumonia Priority: Primary Status: Acute (3) QT prolongation Priority: Secondary Status: Ruled-out (4) Diabetes Priority: Secondary Status: Chronic (5) CVA (cerebral vascular accident) Priority: Secondary Status: Chronic (6) Hematuria Priority: Secondary Status: Chronic (7) Adverse reaction to antibiotic Priority: Secondary Status: Resolved (8) Hypokalemia Priority: Secondary Status: Resolved (9) Hypophosphatemia Priority: Secondary Status: Resolved (10) Sepsis Priority: Secondary Status: Resolved - Respiratory Orders Smoking Cessation: Smoking cessation has been advised. For more information, call the [employer] Quit Line at [phone]-NOW. - Diet/Nutrition Diet/Nutrition Orders: Regular (DM) - Activity Activity Orders: Up ad latha - Services Needed Following services are medically necessary services: Nursing (med rec and DM education), Home Health Aide, Physical Therapy, Occupational Therapy - Transfer Medications Prescriptions: Levalbuterol [Xopenex INH] 1 puff IH PRN PRN #1 inhaler PRN Reason: Shortness Of Breath/Wheezing levoFLOXacin [Levaquin] 750 mg PO DAILY 1 Days #1 tablet Home Medications: Glimepiride [Amaryl] 4 mg PO BID 10/05/17 [History] Cyanocobalamin (Vitamin B-12) [Vitamin B-12] 1,000 mcg PO DAILY 01/23/18 [History] Metformin HCl 500 mg PO BID 01/23/18 [History] Aspirin 325 mg PO DAILY 06/26/18 [History] Pregabalin [Lyrica] 100 mg PO BID 06/26/18 [History] Levalbuterol [Xopenex INH] 1 puff IH PRN PRN #1 inhaler 06/30/18 [Rx] levoFLOXacin [Levaquin] 750 mg PO DAILY 1 Days #1 tablet 06/30/18 [Rx] Allergies/Adverse Reactions: Allergy/AdvReac Type Severity Reaction Status Date / Time ceftriaxone Allergy Rash Verified 06/28/18 14:33 azithromycin AdvReac Hives Verified 06/26/18 13:59 Certification: Further, I certify that my clinical findings support that this patient is homebound (i.e. absences from home require considerable and taxing effort and are for medical reasons or [facility] or infrequently or short duration when for other reasons) because: Homebound Reason: Patient requires assistance of a person or device to safely leave home, Leaving home requires considerable and taxing effort due to condition Attestation: My signature below is to certify that this patient is under my care and that I, or nurse practitioner, or a physician's phlebotomist lab assistant working with me, has a [id number] encounter with this patient.
[2018-06-30] MEDS: Insulin DETEMIR 100 UNIT/ML X5UNITS SQ SCH (09:25)
[2018-06-30] MEDS ORDERED: Levalbuterol Neb 0.63 MG/3 ML IH PRN (11:04)
[2018-06-30 11:13] VITALS: BP 122/78
== END 2018-06-30 15:52 | disposition home health service (06) | DRG 871 ==
LOC: 2NENU 17:56 → EMEROOARM 17:56 → SUATTDRO 21:27 → 2NENU 21:32 → SUATTDRO 06-27 12:31
PROVIDERS: ADMIT Family Medicine; ATTEND Internal Medicine

== ENCOUNTER 2018-12-26 11:10 | Inpatient (IN) ==
[2018-12-26] MEDS ORDERED: *HR* OxyCODONE/APAP 5/325 TABLET PO PRN (11:53)
[2018-12-26] MEDS ORDERED: dexAMETHasone 4 MG TABLET PO SCH (14:00)
--- NOTE | 2018-12-26 14:59 | Pallative History & Physical ---
Date of Encounter: 12/26/18 Time of Encounter: 14:43 Assessment and Plan (1) Cancer associated pain Current visit: Yes Status: Acute Patient has ordered at home: MsContin 30 mg q8hrs, Percocet 5/325mg 1.5 pills q3hrs prn, and Roxanol 20 mg q1hr prn. Per hospice nurse, pt referred to be using only Percocet 1 pill most of the time and at risk of Acetaminophen overuse. in light of liver mets and jaundice, will d/c percocet. Will schedule MsContin 15 mg q12 hrs, and continue roxanol prn. continue dexamethasone 4 mg 8:00 and 14:00. (2) Nausea Current visit: Yes Status: Acute patient was using ABHR at home and it appears to be working well. However the compound is not available in the hospital. Will ask family to bring it in if possible. meanwhile Reglan prn (3) Constipation Current visit: Yes Status: Acute No bowel regimen noted, will start Senna BIB Qualifiers: Constipation type: drug induced constipation Qualified Code(s): K59.03 - Drug induced constipation (4) Hospice care Current visit: Yes Status: Acute Admitted for respite while is being evaluated in the ER. Dispositions will depend on 's clinical course. (5) Diabetes Current visit: No Status: Chronic Patient is not using his DM medication consistently and not eating often. will Hold home meds and use insulin for coverage. Qualifiers: Diabetes mellitus type: type 2 Diabetes mellitus longterm insulin use: without longterm use Diabetes mellitus complication status: with hyperglycemia Qualified Code(s): E11.65 - Type 2 diabetes mellitus with hyperglycemia Internal Medicine - H&P: HPI Chief complaint: Respite due to caregiver sickness Admitted From: Home Plans for Post Hospital Care: Hospice - Home History of present illness: Mr. Mendez is a 78 year old male with terminal diagnosis of Renal cell carcinoma, with extensive liver mets, presented as a direct admit from home for respite. Patient had a fall today at home, and hospice nurse was called by the . At the nurse arrival she noticed that pt's Gretchen was having stroke-like symptoms, 911 was called and Yanira is now in the ER for evaluation. Yanira is Anand's primary caregiver, hence Anand is being admitted to respite. Respite is 5 days, and discharge will be planned pending Gretchen's clinical course. At the time of exam, Anand appears comfortable, rated his pain as 3-4/10. Per hospice nurse Krysten, he usually has a 7/10 pain in a good day. He does not take pain medication consistently despite the pain. Per grand-daughter at the beds may[place], Anand has been having frequent fall recently, he also has been hallucinating, and appears more jaundice every day. His appetite has declined as well. He denies any nausea or vomiting, no dysuria. Does not remember his last BM. No chest pain, palpitation, diplopia. Past Med Surg Social Fam HX - Past Medical History Medical history: arthritis, cancer, coronary artery disease, diabetes, GERD Additional medical history: kidney stones, "stroke to right hand," "Blood clot to right side" Psychiatric history: depression - Past Surgical History Surgical History: angioplasty/stent, cholecystectomy, herniorrhaphy, other Additional surgical history: back,estela,egd,colonoscopy,plif, lithotripsy - Social History Smoking Status: Former smoker Smokeless Tobacco Status: No Alcohol use: none Drug use: none - Family History Father Adopted: Yes Brother Family Member Ethnicity: Non- Living Status: Still Living Hx Family Cardiac Disorders: Yes (CABG) Hx Family Respiratory Disorders: No Hx Family Cancer: No Hx Family GI Disorders: No Hx Family Endocrine Disorder: No Hx Family Neuromuscular Disorders: No Hx Family Neurologic Disorders: No Hx Family HEENT Disorders: No Hx Family Autoimmune Disorders: No Internal Medicine - H&P: Meds Glimepiride [Amaryl] 4 mg PO BID 10/05/17 [History] Cyanocobalamin (Vitamin B-12) [Vitamin B-12] 1,000 mcg PO DAILY 01/23/18 [History] Metformin HCl 500 mg PO BID 01/23/18 [History] Aspirin 325 mg PO DAILY 06/26/18 [History] Pregabalin [Lyrica] 100 mg PO BID 06/26/18 [History] Levalbuterol [Xopenex INH] 1 puff IH PRN PRN #1 inhaler 06/30/18 [Rx] Allergy/AdvReac Type Severity Reaction Status Date / Time ceftriaxone Allergy Rash Verified 06/28/18 14:33 azithromycin AdvReac Hives Verified 06/26/18 13:59 - Constitutional Constitutional ROS PAL: decreased appetite, anorexia, lethargy, weight loss - EENT Additional comments: negative - Cardiovascular Additional comments: negative - Respiratory Respiratory: no cough, no dyspnea - Gastrointestinal Gastrointestinal: abdominal pain, bloating - Genitourinary Genitourinary ROS male: no dysuria, no flank pain - Musculoskeletal Musculoskeletal ROS IM: muscle weakness - Integumentary Additional comments: negative - Neurological Neurological ROS: frequent falls, no focal weakness - Psychiatric Additional comments: depressed mood Palliative Care-Exam - Constitutional Vitals: Pulse Ox 95 12/26/18 14:13 Exam: Vitals reviewed General appearance: alert, oriented x3, sick looking and cachetic Eyes: scleral icterus EENT: oropharynx dry Chest: bilateral: reduced breath sounds, shallow breathing Cardiovascular: regular rate and rhythm, no murmur, rub, gallop Gastrointestinal: distended, tender to touch Integumentary: diffused jaundice Extremities: no cyanosis, no edema, no clubbing, normal capillary refill Musculoskeletal: no deformities Neurologic: AAOx3, non-focal exam Psych: depressed mood Palliative Quality Palliative Quality: Screen for Code Status: Yes, Screen for Goals of Care: Yes, Screen for Pain: Yes, If Pain Regimen Started, Initiate Bowel Regimen: Yes, Sc reen for Nausea/Vomitting: Yes Code Status: 12/26/18 11:44 Resuscitation Status: Active [RES] Routine Comment: Resuscitation Status: DNR-Comfort Care
[2018-12-26] MEDS ORDERED: Morphine Sulfate Oral CONC 10 MG/0.5 ML ORAL.SYG SL PRN (15:17)
[2018-12-26] MEDS: dexAMETHasone 4 MG TABLET PO SCH (15:27)
[2018-12-26] MEDS: Morphine Sulfate ER (12 HR) 15 MG TABLET.ER PO SCH (17:55)
[2018-12-26] MEDS: *HR* Metformin 500 MG TABLET PO SCH (17:55)
[2018-12-26] MEDS: *HR* LORazepam 0.5 MG TABLET PO SCH (23:37)
[2018-12-26] MEDS: Sennosides/Docusate Sodium TABLET PO SCH (23:37)
[2018-12-27] MEDS: Morphine Sulfate ER (12 HR) 15 MG TABLET.ER PO SCH ×2 (07:32→17:42)
[2018-12-27] MEDS: dexAMETHasone 4 MG TABLET PO SCH ×2 (08:45→14:50)
[2018-12-27] MEDS: Sennosides/Docusate Sodium TABLET PO SCH ×3 (08:45→20:32)
[2018-12-27] MEDS: *HR* Metformin 500 MG TABLET PO SCH ×2 (08:45→17:42)
[2018-12-27] MEDS: *HR* LORazepam 0.5 MG TABLET PO SCH (20:32)
[2018-12-28] MEDS: Morphine Sulfate ER (12 HR) 15 MG TABLET.ER PO SCH ×2 (06:38→16:51)
[2018-12-28] MEDS: Sennosides/Docusate Sodium TABLET PO SCH ×2 (07:46→21:33)
[2018-12-28] MEDS: *HR* Metformin 500 MG TABLET PO SCH ×2 (07:47→16:48)
[2018-12-28] MEDS: dexAMETHasone 4 MG TABLET PO SCH ×2 (07:47→13:50)
[2018-12-28 19:37] VITALS: BP 125/79
[2018-12-28] MEDS: *HR* LORazepam 0.5 MG TABLET PO SCH (21:26)
--- NOTE | 2018-12-29 10:51 | Death Note ---
Discharge Sum: Summary - Date and Time Date of admission: 12/26/18 13:26 Date of : 12/29/18 Time of : 04:29 - Summary Details: Mr. Mendez is a 78 year old male with terminal diagnosis of Renal cell carcinoma, with extensive liver mets, presented as a direct admit from home for respite. Patient had a steady decline during his stay, and peacefully this morning. - Additional Data Confirmation of as documented by pronouncing clinician: no pulse, no respirations, no heart sounds, pupils fixed and dilated Family: contacted Attending/PCP notified?: Yes Attending physician: Olga Phillip MD Was code activated?: No Autopsy requested?: No loan examiner notified?: No Organ bank notified?: No Advance directives: No Hospice patient?: No Discharge Sum: Diag - PCOD Probable Cause of : Respiratory arrest Discharge Sum: Prov - Provider Primary care physician: Armand Chapman Admitting clinician: Olga Phillip Attending physician on admission: Olga Phillip Consults: 12/26/18 11:45 Consult to Palliative Care [CONS] Routine Comment: Consulting Provider: Palliative Care Queenie Reason for Consult: respite Time Notified: 11:52 Call Completed: Yes
== END 2018-12-29 04:29 | disposition expired | DRG 951 ==
LOC: 2ANU 13:26
PROVIDERS: ADMIT Internal Medicine Hospice and Palliative Medicine; ATTEND Internal Medicine Hospice and Palliative Medicine